=== PATIENT | male | born 1950 | race Caucasian/White ===

== ENCOUNTER 2022-06-09 13:27 | Emergency (ER) | payer MEDICARE, MEDICAID, SELFPAY ==
[2022-06-09] VITALS (50 sets, daily range): BP systolic 100–205; BP diastolic 54–97; PULSE 62–100; RESP 0–27; TEMP 36.6–38.9; O2SAT 91–100
--- NOTE | 2022-06-09 13:34 | DI.CT.S_ITS ---
PROCEDURE: CT STROKE INDICATIONS: unresponsive TECHNIQUE: Noncontrast 4.5 mm thick angled axial sections acquired from the foramen magnum to the vertex, with coronal reformats. For radiation dose reduction, the following was used: automated exposure control, adjustment of mA and/or kV according to patient size. COMPARISON: [facility], STROKE PROTOCOL, 06/22/2012, 10:22. FINDINGS: Image quality: Excellent. CSF spaces: Basal cisterns are patent. No extra-axial fluid collections. The ventricles are symmetric in size and shape. Brain: Hypodensity of the left occipital lobe is consistent with a remote infarction. No intracranial bleeds or masses. There is cerebral volume loss for age, with resultant ventricular and sulcal prominence. There are periventricular and deep white matter chronic small vessel ischemic changes. There is intracranial internal carotid artery atherosclerosis. Skull and face: Calvarium and visualized facial bones appear intact, without suspicious lesions. Sinuses: The left maxillary sinus is opacified with bony reactive thickening indicating chronic left sinusitis. An orogastric tube is partially visualized. IMPRESSION: 1. No acute intracranial abnormality. 2. Remote left occipital infarct. 3. Cerebral volume loss and small vessel ischemic changes. Findings were discussed with the emergency department at 14:12 This study fulfills neurological imaging criteria for inclusion or exclusion of acute stroke therapies based on available published neurological guidelines. Dictated by: Pako Robison M.D. on 06/09/2022 at 14:06 Approved by: Pako Robison M.D. on 06/09/2022 at 14:12
--- NOTE | 2022-06-09 13:34 | DI.RAD.S_ITS ---
PROCEDURE: XR CHEST 1V INDICATIONS: intubated. TECHNIQUE: One view of the chest was acquired. COMPARISON: [facility], , CHEST 1 VIEW, 06/21/2012, 16:29. FINDINGS: Surgical changes and devices: Endotracheal tube in the midtrachea. Lungs and pleura: Hazy opacity in the left mid lung field. No pleural effusions or pneumothorax. Mediastinum: Mediastinal contours appear unchanged. Heart size is normal. Bones and chest wall: No suspicious bony lesions. Overlying soft tissues appear unremarkable. IMPRESSION: Endotracheal tube in the mid trachea in satisfactory position. Hazy opacity in left mid lung field. This could represent atelectasis, aspiration, or pneumonia. Dictated by: Andrea Pierre M.D. on 06/09/2022 at 13:59 Approved by: Andrea Pierre M.D. on 06/09/2022 at 14:01
--- NOTE | 2022-06-09 13:35 | DI.CT.S_ITS ---
PROCEDURE: CT ANGIO HEAD AND NECK INDICATIONS: unresponsive TECHNIQUE: After the administration of intravenous contrast, 1 mm thick sections acquired from the aortic arch through the [place] of [place]. Post-contrast 4.5 mm thick sections then re-acquired from the foramen magnum to the vertex. 3-dimensional xylnohn-qiuzxxcry-dgtdnxxzxg (MIP) and/or volume rendering reformats were acquired of the central intracranial vasculature and neck separately. For radiation dose reduction, the following was used: automated exposure control, adjustment of mA and/or kV according to patient size. COMPARISON: [facility], MR, STROKE PROTOCOL, 06/22/2012, 10:22. [facility], CT, CT STROKE, 06/09/2022, 13:43. FINDINGS: Image quality: Excellent. BRAIN: The ventricular system and cortical sulci demonstrate atrophy, consistent for the patient's stated age. There are areas of hypodensity within the periventricular and subcortical white matter. There is no acute intra-or extra axial fluid collection. Old left occipital infarction. No acute hemorrhage, mass lesion or midline shift. Brainstem is unremarkable. Globes are symmetrical. Sinuses are aerated. Osseous structures are intact. HEAD CT ANGIOGRAPHY: Anterior circulation: Intracranial internal carotid arteries are normal in size and flow. The flow within the paired anterior cerebral arteries is normal and symmetric. The flow within the middle cerebral arteries is normal and symmetric. The anterior communicating artery is seen. No aneurysms are seen. Posterior circulation: There is a slight left vertebral artery dominance. Visualized portions of the vertebral arteries demonstrate normal caliber, and join to form a normal appearing basilar artery. Flow within the posterior cerebral arteries is normal and symmetric. No aneurysms are seen. 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 NECK CT ANGIOGRAPHY: The origins of the left and right common, and external carotid arteries demonstrate no areas of hemodynamically significant stenosis, vascular occlusion or aneurysmal dilation. Calcifications are present at the origin of the internal carotid arteries bilaterally. There is approximately 50% stenosis at the origin of the right internal carotid artery. Origins of the left vertebral artery demonstrates no areas of hemodynamically significant stenosis, vascular occlusion or aneurysmal dilation. There is lack of opacification at the origin of the right vertebral artery. Aortic arch demonstrates conventional anatomy. There is appearance of occlusion of the right internal jugular vein extending to the proximal SVC. In addition, filling defects are also identified within the right subclavian vein. Scattered opacities are noted in the visualized portion of the left lower lobe. . IMPRESSION: 1. No acute intracranial process. 2. Moderate atrophy and chronic microvascular ischemic changes. 3. No areas of hemodynamically significant stenosis, vascular occlusion or aneurysmal dilation within the anterior circulation. 4. Approximate 50% stenosis at the origin of the right internal carotid artery. 5. Non opacification at the origin of the right vertebral artery limiting evaluation. There is suspected to be likely at least moderate stenosis. 6. 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 7. Scattered opacities within the left lower lobe, possibly atelectasis. Any quantitative measurements of stenosis were performed using NASCET criteria. Dictated by: Radha Sharma M.D. on 06/09/2022 at 14:35 Approved by: Radha Sharma M.D. on 06/09/2022 at 14:43
--- NOTE | 2022-06-09 13:37 | ED.AMS ---
HPI - Altered Mental Status <Margaret Caal DO - Last Filed: 06/12/22 08:01> General Chief Complaint: Unresponsive Stated Complaint: Found down,resp to pain only,pt intubated. Time Seen by Provider: 06/09/22 13:30 Source: EMS Mode of arrival: EMS Limitations: altered mental status and other (intubated.) History of Present Illness HPI narrative: This is a 71-year-old male with reported history of stroke via EMS with unclear medical history. Patient was found down today. Per EMS patient was found by a niece, they had gone for a well check in the morning had left to get a ruvalcaba and then returned and found patient. Telephonic CPR recommended but not started per EMS. When they arrived patient was responsive to painful stimuli only, did not have any purposeful movement but did withdrawal. They are unclear if patient takes daily medications individuals at bedside were not able to give much medical history. Unknown exact down time. Patient received Narcan in the field with no change, succinylcholine and etomidate for intubation and received a 2nd dose of succinylcholine and Versed as patient did start to pull at his wires and seemed to be bucking the vent a little bit. Glucose was appropriate in the field. Related Data Allergies Allergy/AdvReac Type Severity Reaction Status Date / Time No Known Drug Allergies Allergy Verified 06/09/22 13:36 Review of Systems <Margaret Caal DO - Last Filed: 06/12/22 08:01> Review of Systems ROS Unobtainable: All systems reviewed & are unremarkable except as noted in HPI and below Exam <Margaret Caal DO - Last Filed: 06/12/22 08:01> Narrative Exam Narrative: GEN: Patient appears in severe distress. Patient intubated with 7.5ETT HEAD: No evidence of trauma, no raccoon/[place] sign. NECK: Trachea midline EYES: pupils pinpoint bilaterally, EOMI ENT: External inspection normal, trachea is midline, TM's are normal no hemotypanum, Nares are clear, no septal hematoma, no dental or oral injury, poor dentition, airway is normal and with normal occlusion, No bony tenderness RESP: Chest is nontender and has symmetric movement, no ecchymosis, breath sounds are normal no crackles, wheezes or rales CVS: Heart sounds are normal, no murmur noted, No JVD. ABG/GI: Nontender, soft, normal bowel sounds, no distention, no organomegaly, pelvic rock is negative GENIT, RECTAL: Normal external inspection, normal rectal tone normal NEURO: GCS of 6, patient localizes to painful stimuli, patient no movement with Babinski, pupils are pinpoint bilaterally nonreactive, patient does cough on ET tube was suctioned. SKIN: Intact, warm and dry, no crepitus and without decubitus BACK: No CVA tenderness, no vertebral tenderness, no step-off's, no crepitus EXT: Atraumatic, hips are nontender, no pedal edema, normal color and temperature. Initial Vital Signs Initial Vital Signs: Vital Signs Temperature 98.0 F 06/09/22 13:30 Pulse Rate 98 H 06/09/22 13:30 Respiratory Rate 27 H 06/09/22 13:30 Blood Pressure 151/89 H 06/09/22 13:30 Pulse Oximetry 98 06/09/22 13:30 Oxygen Delivery Method 06/09/22 13:30 <Earl Hardin DO - Last Filed: 06/09/22 23:57> Initial Vital Signs Initial Vital Signs: Vital Signs Temperature 98.0 F 06/09/22 13:30 Pulse Rate 98 H 06/09/22 13:30 Respiratory Rate 27 H 06/09/22 13:30 Blood Pressure 151/89 H 06/09/22 13:30 Pulse Oximetry 98 06/09/22 13:30 Oxygen Delivery Method 06/09/22 13:30 Procedures <DO Mohamud Clark Last Filed: 06/12/22 08:01> Lumbar Puncture Time of procedure: 17:40 Time Out Performed: Yes Patient Position: left lateral decubitus Skin Prep: Povidone-Iodine 1% Local Anesthetic: lidocaine 2% Amount of anesthesia used (mL): 4 Spinal Needle Gauge: 22G Interspace Used: L4-L5 Opening Pressure (cmH20): 18 Fluid Initially Obtained: clear Complications: none Additional Comments: Patient intubated during procedure implied consent for procedure for treatment of potential meningitis. Scores <DO Mohamud Clark Last Filed: 06/12/22 08:01> GCS Dayana coma scale eye opening: None Dayana coma scale verbal response: None (intubated) Dayana coma scale motor response: Normal flexion Dayana coma scale total score: 6 <Earl Hardin DO - Last Filed: 06/09/22 23:57> GCS Dayana coma scale total score: 6 Course <Margaret Meme Caal, DO - Last Filed: 06/12/22 08:01> Orders Ordered: Discontinued Medications Acetaminophen (Acetaminophen 650 Mg Supp) 650 mg WI NOW ONE Stop: 06/09/22 16:06 Last Admin: 06/09/22 16:48 Dose: 650 mg Documented By: NR Dexamethasone (Dexamethasone 10 Mg/Ml Vial) 10 mg IV NOW ONE Stop: 06/09/22 16:09 Last Admin: 06/09/22 16:52 Dose: 10 mg Documented By: NR Fentanyl (Fentanyl 100 Mcg/2 Ml Inj) 50 mcg IV NOW ONE Stop: 06/09/22 14:13 Last Admin: 06/09/22 14:17 Dose: 50 mcg Documented By: NR Sodium Chloride (Normal Saline 0.9%) 1,000 mls @ 150 mls/hr IV CONT AZUCENA Last Infusion: 06/10/22 00:51 Dose: 150 mls/hr Documented By: Admin: 06/09/22 13:46 Dose: 150 mls/hr Documented By: NR Fentanyl 1,000 mcg/ Dextrose 250 mls @ 11.375 mls/hr IV TITRATE AZUCENA Last Infusion: 06/10/22 00:19 Dose: 1 mcg/kg/hr, 16.25 mls/hr Documented By: Admin: 06/09/22 14:39 Dose: 0.7 mcg/kg/hr, 11.375 mls/hr Documented By: NR Ampicillin Sodium/Sulbactam (Sodium 3 gm/ Sodium Chloride) 100 mls @ 100 mls/hr IV NOW ONE Stop: 06/09/22 16:09 Last Infusion: 06/09/22 20:00 Dose: 0 mls/hr Documented By: Admin: 06/09/22 17:35 Dose: 100 mls/hr Documented By: NR Vancomycin HCl/Dextrose (Vancomycin) 1,500 mg in 300 mls @ 200 mls/hr IV NOW ONE Stop: 06/09/22 17:37 Last Infusion: 06/09/22 21:41 Dose: 0 mls/hr Documented By: Admin: 06/09/22 20:05 Dose: 200 mls/hr Documented By: NR Ceftriaxone Sodium 2,000 mg/ (Sodium Chloride) 100 mls @ 200 mls/hr IV NOW ONE Stop: 06/09/22 16:09 Last Infusion: 06/09/22 18:22 Dose: 0 mls/hr Documented By: Admin: 06/09/22 16:52 Dose: 200 mls/hr Documented By: NR Sodium Chloride (Normal Saline 0.9%) 1,950 mls @ 650 mls/hr 30 ml/kg infuse over 3 hr (1950 ml) IV NOW ONE Stop: 06/09/22 20:17 Last Infusion: 06/09/22 23:56 Dose: 0 mls/hr Documented By: Admin: 06/09/22 21:10 Dose: 650 mls/hr Documented By: FRED Acyclovir 650 mg/ Dextrose 250 mls @ 250 mls/hr IV NOW ONE Stop: 06/09/22 17:34 Last Infusion: 06/09/22 20:02 Dose: 0 mls/hr Documented By: Admin: 06/09/22 18:56 Dose: 250 mls/hr Documented By: NR Heparin Sodium/Dextrose (Heparin Drip) 25,000 unit in 500 mls @ 24 mls/hr IV CONT AZUCENA; Protocol Last Admin: 06/09/22 23:04 Dose: 1,200 units/hr, 24 mls/hr Documented By: NR Midazolam HCl (Midazolam 5 Mg/Ml Vial) 4 mg IV NOW ONE Stop: 06/09/22 13:39 Last Admin: 06/09/22 13:46 Dose: 4 mg Documented By: NR Consultations Consultation #1: Dr. Salvador [facility] telestroke. Will review images and callback. After several tries Dr. Salvador was able to view images does note that patient has some old stroke but nothing acute that she can appreciate, she agrees with plan to treat and perform lumbar puncture also degrees with plan to hold heparin and start several hours after lumbar puncture but without bolus. Time: 15:56 Consultation #2: Dr. Pacheco, hospitalist. Discussed current findings so far meningitis is on the differential but patient does also have clot which may be causing fever, this could also potentially caused stroke or brainstem stroke. Have initiated antibiotics for possible meningitis discussed timeliness of LP/heparin and risks. Recommends discussing with tell appeals referee Consultation #3: Dr. Weinstein, tele appeals referee does not feel patient is appropriate for cooling protocol at this time as there is no known CPR, does agree with plan for LP, treating with antibiotics but discussed fact that clot is present he would recommend holding heparin for several hours after lumbar puncture and then starting with drip without bolus. If patient is not found to have meningitis would recommend MRI brain and EEG which would require us to ship. He also recommends echo at this time. Time: 17:00 Additional Consultation(s): Dr. Sharma radfrank-Ct head neck angio shows no fx, subluxation negative Cspine. Vital Signs Vital signs: Vital Signs - 8 hr 06/09/22 16:48 06/09/22 18:22 06/09/22 16:00 Temperature 101.8 F H 101.7 F H Pulse Rate Respiratory Rate Blood Pressure 191/81 H Pulse Oximetry 06/09/22 16:00 06/09/22 16:15 06/09/22 16:15 Temperature 101.3 F H 101.3 F H Pulse Rate 87 90 Respiratory Rate 14 14 Blood Pressure 156/77 H Pulse Oximetry 95 95 06/09/22 16:30 06/09/22 16:30 06/09/22 16:45 Temperature 101.7 F H Pulse Rate 91 H Respiratory Rate 15 Blood Pressure 172/84 H 153/78 H Pulse Oximetry 96 06/09/22 16:45 06/09/22 17:00 06/09/22 17:00 Temperature 101.8 F H 101.8 F H Pulse Rate 97 H 96 H Respiratory Rate 14 23 Blood Pressure 153/79 H Pulse Oximetry 96 97 06/09/22 17:15 06/09/22 17:15 06/09/22 17:30 Temperature 102.0 F H Pulse Rate 100 H Respiratory Rate 14 Blood Pressure 139/73 136/76 Pulse Oximetry 97 06/09/22 17:30 06/09/22 17:45 06/09/22 17:45 Temperature 102.0 F H 101.8 F H Pulse Rate 99 H 100 H Respiratory Rate 15 24 Blood Pressure 137/65 Pulse Oximetry 97 95 06/09/22 18:00 06/09/22 18:00 06/09/22 18:15 Temperature 101.8 F H Pulse Rate 92 H Respiratory Rate 17 Blood Pressure 112/54 L 117/80 Pulse Oximetry 91 06/09/22 18:15 06/09/22 18:30 06/09/22 18:30 Temperature 101.7 F H 101.7 F H Pulse Rate 98 H 98 H Respiratory Rate 12 14 Blood Pressure 122/70 Pulse Oximetry 97 97 06/09/22 18:45 06/09/22 18:45 06/09/22 19:00 Temperature 101.5 F H Pulse Rate 94 H Respiratory Rate 13 Blood Pressure 123/71 112/65 Pulse Oximetry 97 06/09/22 19:00 06/09/22 19:15 06/09/22 19:15 Temperature 101.3 F H 100.9 F H Pulse Rate 90 90 Respiratory Rate 13 14 Blood Pressure 112/64 Pulse Oximetry 97 97 06/09/22 19:30 06/09/22 19:30 06/09/22 19:45 Temperature 100.8 F H Pulse Rate 91 H Respiratory Rate 14 Blood Pressure 100/63 102/64 Pulse Oximetry 96 06/09/22 19:45 06/09/22 20:00 06/09/22 20:00 Temperature 100.6 F H 100.4 F H Pulse Rate 91 H 91 H Respiratory Rate 14 15 Blood Pressure 109/64 Pulse Oximetry 96 96 06/09/22 20:15 06/09/22 20:15 06/09/22 20:30 Temperature 100.2 F H Pulse Rate 91 H Respiratory Rate 14 Blood Pressure 108/63 108/62 Pulse Oximetry 96 06/09/22 20:30 06/09/22 20:45 06/09/22 20:45 Temperature 100.0 F H 99.7 F H Pulse Rate 86 81 Respiratory Rate 14 13 Blood Pressure 107/61 Pulse Oximetry 97 97 06/09/22 21:00 06/09/22 21:00 06/09/22 21:15 Temperature 99.5 F Pulse Rate 78 Respiratory Rate 13 Blood Pressure 114/63 114/63 Pulse Oximetry 97 06/09/22 21:15 06/09/22 21:30 06/09/22 21:30 Temperature 99.3 F 99.3 F Pulse Rate 74 71 Respiratory Rate 13 13 Blood Pressure 111/63 Pulse Oximetry 97 97 06/09/22 21:45 06/09/22 21:45 06/09/22 22:00 Temperature 99.1 F Pulse Rate 70 Respiratory Rate 13 Blood Pressure 107/61 125/60 Pulse Oximetry 97 06/09/22 22:00 06/09/22 22:15 06/09/22 22:15 Temperature 99.0 F 98.8 F Pulse Rate 66 66 Respiratory Rate 13 13 Blood Pressure 113/56 L Pulse Oximetry 98 96 06/09/22 22:30 06/09/22 22:30 06/09/22 22:45 Temperature 98.6 F Pulse Rate 67 Respiratory Rate 13 Blood Pressure 119/57 L 138/59 L Pulse Oximetry 97 06/09/22 22:45 06/09/22 23:00 06/09/22 23:00 Temperature 98.4 F 98.2 F Pulse Rate 67 66 Respiratory Rate 13 12 Blood Pressure 130/62 Pulse Oximetry 97 97 06/09/22 23:15 06/09/22 23:15 Temperature 98.1 F Pulse Rate 67 Respiratory Rate 12 Blood Pressure 128/59 L Pulse Oximetry 97 <Earl Hardin, DO - Last Filed: 06/09/22 23:57> Orders Ordered: Discontinued Medications Acetaminophen (Acetaminophen 650 Mg Supp) 650 mg WI NOW ONE Stop: 06/09/22 16:06 Last Admin: 06/09/22 16:48 Dose: 650 mg Documented By: NR Dexamethasone (Dexamethasone 10 Mg/Ml Vial) 10 mg IV NOW ONE Stop: 06/09/22 16:09 Last Admin: 06/09/22 16:52 Dose: 10 mg Documented By: NR Fentanyl (Fentanyl 100 Mcg/2 Ml Inj) 50 mcg IV NOW ONE Stop: 06/09/22 14:13 Last Admin: 06/09/22 14:17 Dose: 50 mcg Documented By: NR Sodium Chloride (Normal Saline 0.9%) 1,000 mls @ 150 mls/hr IV CONT AZUCENA Last Infusion: 06/10/22 00:51 Dose: 150 mls/hr Documented By: Admin: 06/09/22 13:46 Dose: 150 mls/hr Documented By: NR Fentanyl 1,000 mcg/ Dextrose 250 mls @ 11.375 mls/hr IV TITRATE AZUCENA Last Infusion: 06/10/22 00:19 Dose: 1 mcg/kg/hr, 16.25 mls/hr Documented By: Admin: 06/09/22 14:39 Dose: 0.7 mcg/kg/hr, 11.375 mls/hr Documented By: NR Ampicillin Sodium/Sulbactam (Sodium 3 gm/ Sodium Chloride) 100 mls @ 100 mls/hr IV NOW ONE Stop: 06/09/22 16:09 Last Infusion: 06/09/22 20:00 Dose: 0 mls/hr Documented By: Admin: 06/09/22 17:35 Dose: 100 mls/hr Documented By: NR Vancomycin HCl/Dextrose (Vancomycin) 1,500 mg in 300 mls @ 200 mls/hr IV NOW ONE Stop: 06/09/22 17:37 Last Infusion: 06/09/22 21:41 Dose: 0 mls/hr Documented By: Admin: 06/09/22 20:05 Dose: 200 mls/hr Documented By: NR Ceftriaxone Sodium 2,000 mg/ (Sodium Chloride) 100 mls @ 200 mls/hr IV NOW ONE Stop: 06/09/22 16:09 Last Infusion: 06/09/22 18:22 Dose: 0 mls/hr Documented By: Admin: 06/09/22 16:52 Dose: 200 mls/hr Documented By: NR Sodium Chloride (Normal Saline 0.9%) 1,950 mls @ 650 mls/hr 30 ml/kg infuse over 3 hr (1950 ml) IV NOW ONE Stop: 06/09/22 20:17 Last Infusion: 06/09/22 23:56 Dose: 0 mls/hr Documented By: Admin: 06/09/22 21:10 Dose: 650 mls/hr Documented By: FRED Acyclovir 650 mg/ Dextrose 250 mls @ 250 mls/hr IV NOW ONE Stop: 06/09/22 17:34 Last Infusion: 06/09/22 20:02 Dose: 0 mls/hr Documented By: Admin: 06/09/22 18:56 Dose: 250 mls/hr Documented By: NR Heparin Sodium/Dextrose (Heparin Drip) 25,000 unit in 500 mls @ 24 mls/hr IV CONT AZUCENA; Protocol Last Admin: 06/09/22 23:04 Dose: 1,200 units/hr, 24 mls/hr Documented By: NR Midazolam HCl (Midazolam 5 Mg/Ml Vial) 4 mg IV NOW ONE Stop: 06/09/22 13:39 Last Admin: 06/09/22 13:46 Dose: 4 mg Documented By: NR Vital Signs Vital signs: Vital Signs - 8 hr 06/09/22 16:48 06/09/22 18:22 06/09/22 16:00 Temperature 101.8 F H 101.7 F H Pulse Rate Respiratory Rate Blood Pressure 191/81 H Pulse Oximetry 06/09/22 16:00 06/09/22 16:15 06/09/22 16:15 Temperature 101.3 F H 101.3 F H Pulse Rate 87 90 Respiratory Rate 14 14 Blood Pressure 156/77 H Pulse Oximetry 95 95 06/09/22 16:30 06/09/22 16:30 06/09/22 16:45 Temperature 101.7 F H Pulse Rate 91 H Respiratory Rate 15 Blood Pressure 172/84 H 153/78 H Pulse Oximetry 96 06/09/22 16:45 06/09/22 17:00 06/09/22 17:00 Temperature 101.8 F H 101.8 F H Pulse Rate 97 H 96 H Respiratory Rate 14 23 Blood Pressure 153/79 H Pulse Oximetry 96 97 06/09/22 17:15 06/09/22 17:15 06/09/22 17:30 Temperature 102.0 F H Pulse Rate 100 H Respiratory Rate 14 Blood Pressure 139/73 136/76 Pulse Oximetry 97 06/09/22 17:30 06/09/22 17:45 06/09/22 17:45 Temperature 102.0 F H 101.8 F H Pulse Rate 99 H 100 H Respiratory Rate 15 24 Blood Pressure 137/65 Pulse Oximetry 97 95 06/09/22 18:00 06/09/22 18:00 06/09/22 18:15 Temperature 101.8 F H Pulse Rate 92 H Respiratory Rate 17 Blood Pressure 112/54 L 117/80 Pulse Oximetry 91 06/09/22 18:15 06/09/22 18:30 06/09/22 18:30 Temperature 101.7 F H 101.7 F H Pulse Rate 98 H 98 H Respiratory Rate 12 14 Blood Pressure 122/70 Pulse Oximetry 97 97 06/09/22 18:45 06/09/22 18:45 06/09/22 19:00 Temperature 101.5 F H Pulse Rate 94 H Respiratory Rate 13 Blood Pressure 123/71 112/65 Pulse Oximetry 97 06/09/22 19:00 06/09/22 19:15 06/09/22 19:15 Temperature 101.3 F H 100.9 F H Pulse Rate 90 90 Respiratory Rate 13 14 Blood Pressure 112/64 Pulse Oximetry 97 97 06/09/22 19:30 06/09/22 19:30 06/09/22 19:45 Temperature 100.8 F H Pulse Rate 91 H Respiratory Rate 14 Blood Pressure 100/63 102/64 Pulse Oximetry 96 06/09/22 19:45 06/09/22 20:00 06/09/22 20:00 Temperature 100.6 F H 100.4 F H Pulse Rate 91 H 91 H Respiratory Rate 14 15 Blood Pressure 109/64 Pulse Oximetry 96 96 06/09/22 20:15 06/09/22 20:15 06/09/22 20:30 Temperature 100.2 F H Pulse Rate 91 H Respiratory Rate 14 Blood Pressure 108/63 108/62 Pulse Oximetry 96 06/09/22 20:30 06/09/22 20:45 06/09/22 20:45 Temperature 100.0 F H 99.7 F H Pulse Rate 86 81 Respiratory Rate 14 13 Blood Pressure 107/61 Pulse Oximetry 97 97 06/09/22 21:00 06/09/22 21:00 06/09/22 21:15 Temperature 99.5 F Pulse Rate 78 Respiratory Rate 13 Blood Pressure 114/63 114/63 Pulse Oximetry 97 06/09/22 21:15 06/09/22 21:30 06/09/22 21:30 Temperature 99.3 F 99.3 F Pulse Rate 74 71 Respiratory Rate 13 13 Blood Pressure 111/63 Pulse Oximetry 97 97 06/09/22 21:45 06/09/22 21:45 06/09/22 22:00 Temperature 99.1 F Pulse Rate 70 Respiratory Rate 13 Blood Pressure 107/61 125/60 Pulse Oximetry 97 06/09/22 22:00 06/09/22 22:15 06/09/22 22:15 Temperature 99.0 F 98.8 F Pulse Rate 66 66 Respiratory Rate 13 13 Blood Pressure 113/56 L Pulse Oximetry 98 96 06/09/22 22:30 06/09/22 22:30 06/09/22 22:45 Temperature 98.6 F Pulse Rate 67 Respiratory Rate 13 Blood Pressure 119/57 L 138/59 L Pulse Oximetry 97 06/09/22 22:45 06/09/22 23:00 06/09/22 23:00 Temperature 98.4 F 98.2 F Pulse Rate 67 66 Respiratory Rate 13 12 Blood Pressure 130/62 Pulse Oximetry 97 97 06/09/22 23:15 06/09/22 23:15 Temperature 98.1 F Pulse Rate 67 Respiratory Rate 12 Blood Pressure 128/59 L Pulse Oximetry 97 MDM - Altered Mental Status <Margaret Caal, - Last Filed: 06/12/22 08:01> Lab Data Result diagrams: 06/09/22 14:56 06/09/22 14:56 Labs: Lab Results 06/09/22 06/09/22 06/09/22 Range/Units 14:36 14:36 14:37 WBC (4.5-11.0) X10^3/uL RBC (4.5-5.9) X10^6/uL Hgb (13.5-17.5) g/dL Hct (41-53) % MCV (80-100) fL MCH (26-34) PG MCHC (30-36) % RDW (11.6-14.8) % Plt Count (150-400) X10^3/uL Neut % (Auto) (50-75) % Lymph % (Auto) (25-40) % Johnston % (Auto) (3-14) % Eos % (Auto) (2-4) % Baso % (Auto) (0-2) % Neut # (Auto) (0069-6138) /uL Lymph # (Auto) (4676-4961) /uL Johnston # (Auto) (0-900) /uL Eos # (Auto) (0-450) /uL Baso # (Auto) (0-100) /uL PT (10.1-12.7) SECONDS INR (0.9-1.3) APTT (26-36) SECONDS ABG pH 7.45 (7.35-7.45) ABG pCO2 32.7 L (35-45) mmHg ABG pO2 220 H (80-100) mmHg ABG HCO3 23 (22-26) mmol/L ABG Total CO2 24 (21-31) mmol/L ABG O2 Saturation 100 (95-100) % ABG Base Excess -1.0 (-2-2) mmol/L FiO2 100 Sodium (137-145) mmol/L Potassium (3.4-5.1) mmol/L Chloride (98-107) mmol/L Carbon Dioxide (22-32) mmol/L BUN (9-20) mg/dL Creatinine (0.66-1.25) mg/dL Estimated GFR (>60) mL/min BUN/Creatinine Ratio (6-22) Glucose (80-110) mg/dL Lactate (0.7-2.1) mmol/L Calcium (8.4-10.2) mg/dL Total Bilirubin (0.2-1.3) mg/dL AST (17-59) IU/L ALT (<50) IU/L Alkaline Phosphatase (38-126) U/L Ammonia (9-30) umol/L Total Creatine Kinase (55-170) U/L CK-MB (CK-2) (<2.37) ng/mL CK-MB (CK-2) Rel Index (1.5-5.0) % Troponin I (0.01-0.034) ng/mL NT-Pro-B Natriuret Pep (<125) pg/mL Total Protein (6.3-8.2) g/dL Albumin (3.5-5.0) g/dL Globulin (1.7-4.1) g/dL Albumin/Globulin Ratio (1.0-2.8) Procalcitonin (<0.5) ng/mL Urine Color Yellow Urine Appearance Clear Urine pH 5.0 (4.5-8.0) Ur Specific Babbitt 1.025 (1.000-1.035) Urine Protein 1+ H (Negative) Urine Glucose (UA) Negative (Negative) g/dL Urine Ketones 1+ H (NEGATIVE) Urine Occult Blood 1+ H (Negative) Urine Nitrate Negative (Negative) Urine Bilirubin 1+ H (NEGATIVE) Ur Bilirubin Confirm Negative (Negative) Urine Urobilinogen 1.0 (0.2) E.U./dL Ur Leukocyte Esterase Negative (NEGATIVE) Urine RBC 1-5/hpf (0-5/HPF) Urine WBC 1-5/hpf (0-5/HPF) Ur Squamous Epith Cells 0-1 /hpf (0-5/HPF) Ur Transition Epith Cell 0-1/hpf (0-5/HPF) Urine Bacteria Occasional (0-1) (None) Hyaline Casts 10-30/lpf (None) Granular Casts 10-30/lpf (None) Urine Mucus 2+ H (Negative) Ur Culture Indicated? Cult not indicated CSF Tube Number CSF Volume CSF Appearance (Clear) CSF Color (Colorless) CSF WBC (0-5) MONO/uL CSF RBC RBC /uL CSF Mononuclear WBCs CSF Polynuclear WBCs CSF Glucose (40-70) mg/dL CSF Total Protein (12-60) mg/dL CSF C.neoform/gat PCR (Not Detect) CSF CMV DNA (PCR) (Not Detect) CSF Enterovirus (PCR) (Not Detect) CSF E. coli (PCR) (Not Detect) CSF H. influenzae (PCR) (Not Detect) CSF HSV I (PCR) (Not Detect) CSF HSV II (PCR) (Not Detect) CSF HHV 6 (PCR) (Not Detect) CSF L.monocytogenes PCR (Not Detect) CSF N. meningitidis PCR (Not Detect) CSF Parechovirus (PCR) (Not Detect) CSF S. agalactiae (PCR) (Not Detect) CSF S. pneumoniae (PCR) (Not Detect) CSF VZV (PCR) (Not Detecte) U Opiates 300ng/mL cut Negative (Negative) Ur Oxycodone Screen Negative (Negative) Urine Methadone Screen Negative (Negative) Ur Barbiturates Screen Negative (Negative) U Tricyclic Antidepress Negative (Negative) Ur Phencyclidine Scrn Negative (Negative) Ur Amphetamines Screen Negative (Negative) U Methamphetamines Scrn Negative (Negative) Ur MDMA Scrn (Ecstasy) Negative (Negative) U Benzodiazepines Scrn Negative (Negative) Urine Cocaine Screen Negative (Negative) U Marijuana (THC) Screen Negative (Negative) Ethyl Alcohol ( - 10) mg/dL A. baumannii (PCR) (Not Detect) Xin albicans (PCR) (Not Detect) C. glabrata (PCR) (Not Detect) C. krusei (PCR) (Not Detect) C. parapsilosis (PCR) (Not Detect) C. tropicalis (PCR) (Not Detect) SARS-CoV-2 (PCR) (Negative) Enterobacteriac sp PCR (Not Detect) E. cloacae complex PCR (Not Detect) Enterococcus sp PCR (Not Detect) E. coli (PCR) (Not Detect) H. influenzae (PCR) (Not Detect) Klebsiella oxytoca PCR (Not Detect) Klebsiella pneumoniae (Not Detect) List. monocytogenes PCR (Not Detect) N. meningitidis (PCR) (Not Detect) Proteus species (PCR) (Not Detect) Serratia marcescens PCR (Not Detect) Staphylococcus sp PCR (Not Detect) Staph aureus (PCR) (Not Detect) mecA-Methicil Res Gene (Not Detect) Streptococcus sp PCR (Not Detect) Group A Strep (PCR) (Not Detect) Strep agalactiae (PCR) (Not Detect) Strep pneumoniae (PCR) (Not Detect) P. aeruginosa (PCR) (Not Detect) Jules/B-Vanco Res Genes KPC-Carbap Res Gene PCR (Not Detect) 06/09/22 06/09/22 06/09/22 Range/Units 14:49 14:56 14:56 WBC 6.5 (4.5-11.0) X10^3/uL RBC 5.64 (4.5-5.9) X10^6/uL Hgb 19.0 H (13.5-17.5) g/dL Hct 55.5 H (41-53) % MCV 98.4 (80-100) fL MCH 33.7 (26-34) PG MCHC 34.2 (30-36) % RDW 13.4 (11.6-14.8) % Plt Count 229 (150-400) X10^3/uL Neut % (Auto) 79.8 H (50-75) % Lymph % (Auto) 13.1 L (25-40) % Johnston % (Auto) 6.7 (3-14) % Eos % (Auto) 0.1 L (2-4) % Baso % (Auto) 0.3 (0-2) % Neut # (Auto) 5200 (0751-4137) /uL Lymph # (Auto) 900 L (0749-4960) /uL Johnston # (Auto) 400 (0-900) /uL Eos # (Auto) 0 (0-450) /uL Baso # (Auto) 0 (0-100) /uL PT 13.4 H (10.1-12.7) SECONDS INR 1.2 (0.9-1.3) APTT 31 (26-36) SECONDS ABG pH (7.35-7.45) ABG pCO2 (35-45) mmHg ABG pO2 (80-100) mmHg ABG HCO3 (22-26) mmol/L ABG Total CO2 (21-31) mmol/L ABG O2 Saturation (95-100) % ABG Base Excess (-2-2) mmol/L FiO2 Sodium (137-145) mmol/L Potassium (3.4-5.1) mmol/L Chloride (98-107) mmol/L Carbon Dioxide (22-32) mmol/L BUN (9-20) mg/dL Creatinine (0.66-1.25) mg/dL Estimated GFR (>60) mL/min BUN/Creatinine Ratio (6-22) Glucose (80-110) mg/dL Lactate (0.7-2.1) mmol/L Calcium (8.4-10.2) mg/dL Total Bilirubin (0.2-1.3) mg/dL AST (17-59) IU/L ALT (<50) IU/L Alkaline Phosphatase (38-126) U/L Ammonia (9-30) umol/L Total Creatine Kinase (55-170) U/L CK-MB (CK-2) (<2.37) ng/mL CK-MB (CK-2) Rel Index (1.5-5.0) % Troponin I (0.01-0.034) ng/mL NT-Pro-B Natriuret Pep (<125) pg/mL Total Protein (6.3-8.2) g/dL Albumin (3.5-5.0) g/dL Globulin (1.7-4.1) g/dL Albumin/Globulin Ratio (1.0-2.8) Procalcitonin (<0.5) ng/mL Urine Color Urine Appearance Urine pH (4.5-8.0) Ur Specific [place] (1.000-1.035) Urine Protein (Negative) Urine Glucose (UA) (Negative) g/dL Urine Ketones (NEGATIVE) Urine Occult Blood (Negative) Urine Nitrate (Negative) Urine Bilirubin (NEGATIVE) Ur Bilirubin Confirm (Negative) Urine Urobilinogen (0.2) E.U./dL Ur Leukocyte Esterase (NEGATIVE) Urine RBC (0-5/HPF) Urine WBC (0-5/HPF) Ur Squamous Epith Cells (0-5/HPF) Ur Transition Epith Cell (0-5/HPF) Urine Bacteria (None) Hyaline Casts (None) Granular Casts (None) Urine Mucus (Negative) Ur Culture Indicated? CSF Tube Number CSF Volume CSF Appearance (Clear) CSF Color (Colorless) CSF WBC (0-5) MONO/uL CSF RBC RBC /uL CSF Mononuclear WBCs CSF Polynuclear WBCs CSF Glucose (40-70) mg/dL CSF Total Protein (12-60) mg/dL CSF C.neoform/gat PCR (Not Detect) CSF CMV DNA (PCR) (Not Detect) CSF Enterovirus (PCR) (Not Detect) CSF E. coli (PCR) (Not Detect) CSF H. influenzae (PCR) (Not Detect) CSF HSV I (PCR) (Not Detect) CSF HSV II (PCR) (Not Detect) CSF HHV 6 (PCR) (Not Detect) CSF L.monocytogenes PCR (Not Detect) CSF N. meningitidis PCR (Not Detect) CSF Parechovirus (PCR) (Not Detect) CSF S. agalactiae (PCR) (Not Detect) CSF S. pneumoniae (PCR) (Not Detect) CSF VZV (PCR) (Not Detecte) U Opiates 300ng/mL cut (Negative) Ur Oxycodone Screen (Negative) Urine Methadone Screen (Negative) Ur Barbiturates Screen (Negative) U Tricyclic Antidepress (Negative) Ur Phencyclidine Scrn (Negative) Ur Amphetamines Screen (Negative) U Methamphetamines Scrn (Negative) Ur MDMA Scrn (Ecstasy) (Negative) U Benzodiazepines Scrn (Negative) Urine Cocaine Screen (Negative) U Marijuana (THC) Screen (Negative) Ethyl Alcohol ( - 10) mg/dL A. baumannii (PCR) (Not Detect) Xin albicans (PCR) (Not Detect) C. glabrata (PCR) (Not Detect) C. krusei (PCR) (Not Detect) C. parapsilosis (PCR) (Not Detect) C. tropicalis (PCR) (Not Detect) SARS-CoV-2 (PCR) Negative (Negative) Enterobacteriac sp PCR (Not Detect) E. cloacae complex PCR (Not Detect) Enterococcus sp PCR (Not Detect) E. coli (PCR) (Not Detect) H. influenzae (PCR) (Not Detect) Klebsiella oxytoca PCR (Not Detect) Klebsiella pneumoniae (Not Detect) List. monocytogenes PCR (Not Detect) N. meningitidis (PCR) (Not Detect) Proteus species (PCR) (Not Detect) Serratia marcescens PCR (Not Detect) Staphylococcus sp PCR (Not Detect) Staph aureus (PCR) (Not Detect) mecA-Methicil Res Gene (Not Detect) Streptococcus sp PCR (Not Detect) Group A Strep (PCR) (Not Detect) Strep agalactiae (PCR) (Not Detect) Strep pneumoniae (PCR) (Not Detect) P. aeruginosa (PCR) (Not Detect) Jules/B-Vanco Res Genes KPC-Carbap Res Gene PCR (Not Detect) 06/09/22 06/09/22 06/09/22 Range/Units 14:56 14:56 14:56 WBC (4.5-11.0) X10^3/uL RBC (4.5-5.9) X10^6/uL Hgb (13.5-17.5) g/dL Hct (41-53) % MCV (80-100) fL MCH (26-34) PG MCHC (30-36) % RDW (11.6-14.8) % Plt Count (150-400) X10^3/uL Neut % (Auto) (50-75) % Lymph % (Auto) (25-40) % Johnston % (Auto) (3-14) % Eos % (Auto) (2-4) % Baso % (Auto) (0-2) % Neut # (Auto) (5183-7941) /uL Lymph # (Auto) (9891-9160) /uL Johnston # (Auto) (0-900) /uL Eos # (Auto) (0-450) /uL Baso # (Auto) (0-100) /uL PT (10.1-12.7) SECONDS INR (0.9-1.3) APTT (26-36) SECONDS ABG pH (7.35-7.45) ABG pCO2 (35-45) mmHg ABG pO2 (80-100) mmHg ABG HCO3 (22-26) mmol/L ABG Total CO2 (21-31) mmol/L ABG O2 Saturation (95-100) % ABG Base Excess (-2-2) mmol/L FiO2 Sodium 135 L (137-145) mmol/L Potassium 4.5 (3.4-5.1) mmol/L Chloride 98 (98-107) mmol/L Carbon Dioxide 24 (22-32) mmol/L BUN 28 H (9-20) mg/dL Creatinine 1.42 H (0.66-1.25) mg/dL Estimated GFR 53 L (>60) mL/min BUN/Creatinine Ratio 19.7 (6-22) Glucose 123 H (80-110) mg/dL Lactate (0.7-2.1) mmol/L Calcium 8.8 (8.4-10.2) mg/dL Total Bilirubin 2.4 H (0.2-1.3) mg/dL AST 38 (17-59) IU/L ALT 20 (<50) IU/L Alkaline Phosphatase 59 (38-126) U/L Ammonia < 9 L (9-30) umol/L Total Creatine Kinase 512 H (55-170) U/L CK-MB (CK-2) 1.94 (<2.37) ng/mL CK-MB (CK-2) Rel Index 0.4 L (1.5-5.0) % Troponin I < 0.012 (0.01-0.034) ng/mL NT-Pro-B Natriuret Pep 516 H (<125) pg/mL Total Protein 9.2 H (6.3-8.2) g/dL Albumin 4.6 (3.5-5.0) g/dL Globulin 4.6 H (1.7-4.1) g/dL Albumin/Globulin Ratio 1.0 (1.0-2.8) Procalcitonin (<0.5) ng/mL Urine Color Urine Appearance Urine pH (4.5-8.0) Ur Specific Babb[place] (1.000-1.035) Urine Protein (Negative) Urine Glucose (UA) (Negative) g/dL Urine Ketones (NEGATIVE) Urine Occult Blood (Negative) Urine Nitrate (Negative) Urine Bilirubin (NEGATIVE) Ur Bilirubin Confirm (Negative) Urine Urobilinogen (0.2) E.U./dL Ur Leukocyte Esterase (NEGATIVE) Urine RBC (0-5/HPF) Urine WBC (0-5/HPF) Ur Squamous Epith Cells (0-5/HPF) Ur Transition Epith Cell (0-5/HPF) Urine Bacteria (None) Hyaline Casts (None) Granular Casts (None) Urine Mucus (Negative) Ur Culture Indicated? CSF Tube Number CSF Volume CSF Appearance (Clear) CSF Color (Colorless) CSF WBC (0-5) MONO/uL CSF RBC RBC /uL CSF Mononuclear WBCs CSF Polynuclear WBCs CSF Glucose (40-70) mg/dL CSF Total Protein (12-60) mg/dL CSF C.neoform/gat PCR (Not Detect) CSF CMV DNA (PCR) (Not Detect) CSF Enterovirus (PCR) (Not Detect) CSF E. coli (PCR) (Not Detect) CSF H. influenzae (PCR) (Not Detect) CSF HSV I (PCR) (Not Detect) CSF HSV II (PCR) (Not Detect) CSF HHV 6 (PCR) (Not Detect) CSF L.monocytogenes PCR (Not Detect) CSF N. meningitidis PCR (Not Detect) CSF Parechovirus (PCR) (Not Detect) CSF S. agalactiae (PCR) (Not Detect) CSF S. pneumoniae (PCR) (Not Detect) CSF VZV (PCR) (Not Detecte) U Opiates 300ng/mL cut (Negative) Ur Oxycodone Screen (Negative) Urine Methadone Screen (Negative) Ur Barbiturates Screen (Negative) U Tricyclic Antidepress (Negative) Ur Phencyclidine Scrn (Negative) Ur Amphetamines Screen (Negative) U Methamphetamines Scrn (Negative) Ur MDMA Scrn (Ecstasy) (Negative) U Benzodiazepines Scrn (Negative) Urine Cocaine Screen (Negative) U Marijuana (THC) Screen (Negative) Ethyl Alcohol < 10 ( - 10) mg/dL A. baumannii (PCR) (Not Detect) Xin albicans (PCR) (Not Detect) C. glabrata (PCR) (Not Detect) C. krusei (PCR) (Not Detect) C. parapsilosis (PCR) (Not Detect) C. tropicalis (PCR) (Not Detect) SARS-CoV-2 (PCR) (Negative) Enterobacteriac sp PCR (Not Detect) E. cloacae complex PCR (Not Detect) Enterococcus sp PCR (Not Detect) E. coli (PCR) (Not Detect) H. influenzae (PCR) (Not Detect) Klebsiella oxytoca PCR (Not Detect) Klebsiella pneumoniae (Not Detect) List. monocytogenes PCR (Not Detect) N. meningitidis (PCR) (Not Detect) Proteus species (PCR) (Not Detect) Serratia marcescens PCR (Not Detect) Staphylococcus sp PCR (Not Detect) Staph aureus (PCR) (Not Detect) mecA-Methicil Res Gene (Not Detect) Streptococcus sp PCR (Not Detect) Group A Strep (PCR) (Not Detect) Strep agalactiae (PCR) (Not Detect) Strep pneumoniae (PCR) (Not Detect) P. aeruginosa (PCR) (Not Detect) Jules/B-Vanco Res Genes KPC-Carbap Res Gene PCR (Not Detect) 06/09/22 06/09/22 06/09/22 Range/Units 14:56 14:56 14:56 WBC (4.5-11.0) X10^3/uL RBC (4.5-5.9) X10^6/uL Hgb (13.5-17.5) g/dL Hct (41-53) % MCV (80-100) fL MCH (26-34) PG MCHC (30-36) % RDW (11.6-14.8) % Plt Count (150-400) X10^3/uL Neut % (Auto) (50-75) % Lymph % (Auto) (25-40) % Johnston % (Auto) (3-14) % Eos % (Auto) (2-4) % Baso % (Auto) (0-2) % Neut # (Auto) (9306-9129) /uL Lymph # (Auto) (9308-4896) /uL Johnston # (Auto) (0-900) /uL Eos # (Auto) (0-450) /uL Baso # (Auto) (0-100) /uL PT (10.1-12.7) SECONDS INR (0.9-1.3) APTT (26-36) SECONDS ABG pH (7.35-7.45) ABG pCO2 (35-45) mmHg ABG pO2 (80-100) mmHg ABG HCO3 (22-26) mmol/L ABG Total CO2 (21-31) mmol/L ABG O2 Saturation (95-100) % ABG Base Excess (-2-2) mmol/L FiO2 Sodium (137-145) mmol/L Potassium (3.4-5.1) mmol/L Chloride (98-107) mmol/L Carbon Dioxide (22-32) mmol/L BUN (9-20) mg/dL Creatinine (0.66-1.25) mg/dL Estimated GFR (>60) mL/min BUN/Creatinine Ratio (6-22) Glucose (80-110) mg/dL Lactate 2.8 H (0.7-2.1) mmol/L Calcium (8.4-10.2) mg/dL Total Bilirubin (0.2-1.3) mg/dL AST (17-59) IU/L ALT (<50) IU/L Alkaline Phosphatase (38-126) U/L Ammonia (9-30) umol/L Total Creatine Kinase (55-170) U/L CK-MB (CK-2) (<2.37) ng/mL CK-MB (CK-2) Rel Index (1.5-5.0) % Troponin I (0.01-0.034) ng/mL NT-Pro-B Natriuret Pep (<125) pg/mL Total Protein (6.3-8.2) g/dL Albumin (3.5-5.0) g/dL Globulin (1.7-4.1) g/dL Albumin/Globulin Ratio (1.0-2.8) Procalcitonin 0.16 (<0.5) ng/mL Urine Color Urine Appearance Urine pH (4.5-8.0) Ur Specific [place] (1.000-1.035) Urine Protein (Negative) Urine Glucose (UA) (Negative) g/dL Urine Ketones (NEGATIVE) Urine Occult Blood (Negative) Urine Nitrate (Negative) Urine Bilirubin (NEGATIVE) Ur Bilirubin Confirm (Negative) Urine Urobilinogen (0.2) E.U./dL Ur Leukocyte Esterase (NEGATIVE) Urine RBC (0-5/HPF) Urine WBC (0-5/HPF) Ur Squamous Epith Cells (0-5/HPF) Ur Transition Epith Cell (0-5/HPF) Urine Bacteria (None) Hyaline Casts (None) Granular Casts (None) Urine Mucus (Negative) Ur Culture Indicated? CSF Tube Number CSF Volume CSF Appearance (Clear) CSF Color (Colorless) CSF WBC (0-5) MONO/uL CSF RBC RBC /uL CSF Mononuclear WBCs CSF Polynuclear WBCs CSF Glucose (40-70) mg/dL CSF Total Protein (12-60) mg/dL CSF C.neoform/gat PCR (Not Detect) CSF CMV DNA (PCR) (Not Detect) CSF Enterovirus (PCR) (Not Detect) CSF E. coli (PCR) (Not Detect) CSF H. influenzae (PCR) (Not Detect) CSF HSV I (PCR) (Not Detect) CSF HSV II (PCR) (Not Detect) CSF HHV 6 (PCR) (Not Detect) CSF L.monocytogenes PCR (Not Detect) CSF N. meningitidis PCR (Not Detect) CSF Parechovirus (PCR) (Not Detect) CSF S. agalactiae (PCR) (Not Detect) CSF S. pneumoniae (PCR) (Not Detect) CSF VZV (PCR) (Not Detecte) U Opiates 300ng/mL cut (Negative) Ur Oxycodone Screen (Negative) Urine Methadone Screen (Negative) Ur Barbiturates Screen (Negative) U Tricyclic Antidepress (Negative) Ur Phencyclidine Scrn (Negative) Ur Amphetamines Screen (Negative) U Methamphetamines Scrn (Negative) Ur MDMA Scrn (Ecstasy) (Negative) U Benzodiazepines Scrn (Negative) Urine Cocaine Screen (Negative) U Marijuana (THC) Screen (Negative) Ethyl Alcohol ( - 10) mg/dL A. baumannii (PCR) Not detected (Not Detect) Xin albicans (PCR) Not detected (Not Detect) C. glabrata (PCR) Not detected (Not Detect) C. krusei (PCR) Not detected (Not Detect) C. parapsilosis (PCR) Not detected (Not Detect) C. tropicalis (PCR) Not detected (Not Detect) SARS-CoV-2 (PCR) (Negative) Enterobacteriac sp PCR Not detected (Not Detect) E. cloacae complex PCR Not detected (Not Detect) Enterococcus sp PCR Not detected (Not Detect) E. coli (PCR) Not detected (Not Detect) H. influenzae (PCR) Not detected (Not Detect) Klebsiella oxytoca PCR Not detected (Not Detect) Klebsiella pneumoniae Not detected (Not Detect) List. monocytogenes PCR Not detected (Not Detect) N. meningitidis (PCR) Not detected (Not Detect) Proteus species (PCR) Not detected (Not Detect) Serratia marcescens PCR Not detected (Not Detect) Staphylococcus sp PCR Detected H (Not Detect) Staph aureus (PCR) Not detected (Not Detect) mecA-Methicil Res Gene Detected H (Not Detect) Streptococcus sp PCR Not detected (Not Detect) Group A Strep (PCR) Not detected (Not Detect) Strep agalactiae (PCR) Not detected (Not Detect) Strep pneumoniae (PCR) Not detected (Not Detect) P. aeruginosa (PCR) Not detected (Not Detect) Jules/B-Vanco Res Genes Not Reportable KPC-Carbap Res Gene PCR Not detected (Not Detect) 06/09/22 06/09/22 06/09/22 Range/Units 17:20 18:00 18:00 WBC (4.5-11.0) X10^3/uL RBC (4.5-5.9) X10^6/uL Hgb (13.5-17.5) g/dL Hct (41-53) % MCV (80-100) fL MCH (26-34) PG MCHC (30-36) % RDW (11.6-14.8) % Plt Count (150-400) X10^3/uL Neut % (Auto) (50-75) % Lymph % (Auto) (25-40) % Johnston % (Auto) (3-14) % Eos % (Auto) (2-4) % Baso % (Auto) (0-2) % Neut # (Auto) (2001-8457) /uL Lymph # (Auto) (0781-8434) /uL Johnston # (Auto) (0-900) /uL Eos # (Auto) (0-450) /uL Baso # (Auto) (0-100) /uL PT (10.1-12.7) SECONDS INR (0.9-1.3) APTT (26-36) SECONDS ABG pH (7.35-7.45) ABG pCO2 (35-45) mmHg ABG pO2 (80-100) mmHg ABG HCO3 (22-26) mmol/L ABG Total CO2 (21-31) mmol/L ABG O2 Saturation (95-100) % ABG Base Excess (-2-2) mmol/L FiO2 Sodium (137-145) mmol/L Potassium (3.4-5.1) mmol/L Chloride (98-107) mmol/L Carbon Dioxide (22-32) mmol/L BUN (9-20) mg/dL Creatinine (0.66-1.25) mg/dL Estimated GFR (>60) mL/min BUN/Creatinine Ratio (6-22) Glucose (80-110) mg/dL Lactate 1.5 (0.7-2.1) mmol/L Calcium (8.4-10.2) mg/dL Total Bilirubin (0.2-1.3) mg/dL AST (17-59) IU/L ALT (<50) IU/L Alkaline Phosphatase (38-126) U/L Ammonia (9-30) umol/L Total Creatine Kinase (55-170) U/L CK-MB (CK-2) (<2.37) ng/mL CK-MB (CK-2) Rel Index (1.5-5.0) % Troponin I (0.01-0.034) ng/mL NT-Pro-B Natriuret Pep (<125) pg/mL Total Protein (6.3-8.2) g/dL Albumin (3.5-5.0) g/dL Globulin (1.7-4.1) g/dL Albumin/Globulin Ratio (1.0-2.8) Procalcitonin (<0.5) ng/mL Urine Color Urine Appearance Urine pH (4.5-8.0) Ur Specific Babbitt (1.000-1.035) Urine Protein (Negative) Urine Glucose (UA) (Negative) g/dL Urine Ketones (NEGATIVE) Urine Occult Blood (Negative) Urine Nitrate (Negative) Urine Bilirubin (NEGATIVE) Ur Bilirubin Confirm (Negative) Urine Urobilinogen (0.2) E.U./dL Ur Leukocyte Esterase (NEGATIVE) Urine RBC (0-5/HPF) Urine WBC (0-5/HPF) Ur Squamous Epith Cells (0-5/HPF) Ur Transition Epith Cell (0-5/HPF) Urine Bacteria (None) Hyaline Casts (None) Granular Casts (None) Urine Mucus (Negative) Ur Culture Indicated? CSF Tube Number CSF Volume CSF Appearance (Clear) CSF Color (Colorless) CSF WBC (0-5) MONO/uL CSF RBC RBC /uL CSF Mononuclear WBCs CSF Polynuclear WBCs CSF Glucose 72 H (40-70) mg/dL CSF Total Protein 102 H (12-60) mg/dL CSF C.neoform/gat PCR Not detected (Not Detect) CSF CMV DNA (PCR) Not detected (Not Detect) CSF Enterovirus (PCR) Not detected (Not Detect) CSF E. coli (PCR) Not detected (Not Detect) CSF H. influenzae (PCR) Not detected (Not Detect) CSF HSV I (PCR) Not detected (Not Detect) CSF HSV II (PCR) Not detected (Not Detect) CSF HHV 6 (PCR) Not detected (Not Detect) CSF L.monocytogenes PCR Not detected (Not Detect) CSF N. meningitidis PCR Not detected (Not Detect) CSF Parechovirus (PCR) Not detected (Not Detect) CSF S. agalactiae (PCR) Not detected (Not Detect) CSF S. pneumoniae (PCR) Not detected (Not Detect) CSF VZV (PCR) Not detected (Not Detecte) U Opiates 300ng/mL cut (Negative) Ur Oxycodone Screen (Negative) Urine Methadone Screen (Negative) Ur Barbiturates Screen (Negative) U Tricyclic Antidepress (Negative) Ur Phencyclidine Scrn (Negative) Ur Amphetamines Screen (Negative) U Methamphetamines Scrn (Negative) Ur MDMA Scrn (Ecstasy) (Negative) U Benzodiazepines Scrn (Negative) Urine Cocaine Screen (Negative) U Marijuana (THC) Screen (Negative) Ethyl Alcohol ( - 10) mg/dL A. baumannii (PCR) (Not Detect) Xin albicans (PCR) (Not Detect) C. glabrata (PCR) (Not Detect) C. krusei (PCR) (Not Detect) C. parapsilosis (PCR) (Not Detect) C. tropicalis (PCR) (Not Detect) SARS-CoV-2 (PCR) (Negative) Enterobacteriac sp PCR (Not Detect) E. cloacae complex PCR (Not Detect) Enterococcus sp PCR (Not Detect) E. coli (PCR) (Not Detect) H. influenzae (PCR) (Not Detect) Klebsiella oxytoca PCR (Not Detect) Klebsiella pneumoniae (Not Detect) List. monocytogenes PCR (Not Detect) N. meningitidis (PCR) (Not Detect) Proteus species (PCR) (Not Detect) Serratia marcescens PCR (Not Detect) Staphylococcus sp PCR (Not Detect) Staph aureus (PCR) (Not Detect) mecA-Methicil Res Gene (Not Detect) Streptococcus sp PCR (Not Detect) Group A Strep (PCR) (Not Detect) Strep agalactiae (PCR) (Not Detect) Strep pneumoniae (PCR) (Not Detect) P. aeruginosa (PCR) (Not Detect) Jules/B-Vanco Res Genes KPC-Carbap Res Gene PCR (Not Detect) 06/09/22 06/09/22 Range/Units 18:00 18:00 WBC (4.5-11.0) X10^3/uL RBC (4.5-5.9) X10^6/uL Hgb (13.5-17.5) g/dL Hct (41-53) % MCV (80-100) fL MCH (26-34) PG MCHC (30-36) % RDW (11.6-14.8) % Plt Count (150-400) X10^3/uL Neut % (Auto) (50-75) % Lymph % (Auto) (25-40) % Johnston % (Auto) (3-14) % Eos % (Auto) (2-4) % Baso % (Auto) (0-2) % Neut # (Auto) (1751-9581) /uL Lymph # (Auto) (8649-4951) /uL Johnston # (Auto) (0-900) /uL Eos # (Auto) (0-450) /uL Baso # (Auto) (0-100) /uL PT (10.1-12.7) SECONDS INR (0.9-1.3) APTT (26-36) SECONDS ABG pH (7.35-7.45) ABG pCO2 (35-45) mmHg ABG pO2 (80-100) mmHg ABG HCO3 (22-26) mmol/L ABG Total CO2 (21-31) mmol/L ABG O2 Saturation (95-100) % ABG Base Excess (-2-2) mmol/L FiO2 Sodium (137-145) mmol/L Potassium (3.4-5.1) mmol/L Chloride (98-107) mmol/L Carbon Dioxide (22-32) mmol/L BUN (9-20) mg/dL Creatinine (0.66-1.25) mg/dL Estimated GFR (>60) mL/min BUN/Creatinine Ratio (6-22) Glucose (80-110) mg/dL Lactate (0.7-2.1) mmol/L Calcium (8.4-10.2) mg/dL Total Bilirubin (0.2-1.3) mg/dL AST (17-59) IU/L ALT (<50) IU/L Alkaline Phosphatase (38-126) U/L Ammonia (9-30) umol/L Total Creatine Kinase (55-170) U/L CK-MB (CK-2) (<2.37) ng/mL CK-MB (CK-2) Rel Index (1.5-5.0) % Troponin I (0.01-0.034) ng/mL NT-Pro-B Natriuret Pep (<125) pg/mL Total Protein (6.3-8.2) g/dL Albumin (3.5-5.0) g/dL Globulin (1.7-4.1) g/dL Albumin/Globulin Ratio (1.0-2.8) Procalcitonin (<0.5) ng/mL Urine Color Urine Appearance Urine pH (4.5-8.0) Ur Specific [place] (1.000-1.035) Urine Protein (Negative) Urine Glucose (UA) (Negative) g/dL Urine Ketones (NEGATIVE) Urine Occult Blood (Negative) Urine Nitrate (Negative) Urine Bilirubin (NEGATIVE) Ur Bilirubin Confirm (Negative) Urine Urobilinogen (0.2) E.U./dL Ur Leukocyte Esterase (NEGATIVE) Urine RBC (0-5/HPF) Urine WBC (0-5/HPF) Ur Squamous Epith Cells (0-5/HPF) Ur Transition Epith Cell (0-5/HPF) Urine Bacteria (None) Hyaline Casts (None) Granular Casts (None) Urine Mucus (Negative) Ur Culture Indicated? CSF Tube Number 1 4 CSF Volume 1.0 ml 1.0 ml CSF Appearance Clear Clear (Clear) CSF Color Colorless Colorless (Colorless) CSF WBC 0 0 (0-5) MONO/uL CSF RBC 0 0 RBC /uL CSF Mononuclear WBCs Not Reportable Not Reportable CSF Polynuclear WBCs Not Reportable Not Reportable CSF Glucose (40-70) mg/dL CSF Total Protein (12-60) mg/dL CSF C.neoform/gat PCR (Not Detect) CSF CMV DNA (PCR) (Not Detect) CSF Enterovirus (PCR) (Not Detect) CSF E. coli (PCR) (Not Detect) CSF H. influenzae (PCR) (Not Detect) CSF HSV I (PCR) (Not Detect) CSF HSV II (PCR) (Not Detect) CSF HHV 6 (PCR) (Not Detect) CSF L.monocytogenes PCR (Not Detect) CSF N. meningitidis PCR (Not Detect) CSF Parechovirus (PCR) (Not Detect) CSF S. agalactiae (PCR) (Not Detect) CSF S. pneumoniae (PCR) (Not Detect) CSF VZV (PCR) (Not Detecte) U Opiates 300ng/mL cut (Negative) Ur Oxycodone Screen (Negative) Urine Methadone Screen (Negative) Ur Barbiturates Screen (Negative) U Tricyclic Antidepress (Negative) Ur Phencyclidine Scrn (Negative) Ur Amphetamines Screen (Negative) U Methamphetamines Scrn (Negative) Ur MDMA Scrn (Ecstasy) (Negative) U Benzodiazepines Scrn (Negative) Urine Cocaine Screen (Negative) U Marijuana (THC) Screen (Negative) Ethyl Alcohol ( - 10) mg/dL A. baumannii (PCR) (Not Detect) Xin albicans (PCR) (Not Detect) C. glabrata (PCR) (Not Detect) C. krusei (PCR) (Not Detect) C. parapsilosis (PCR) (Not Detect) C. tropicalis (PCR) (Not Detect) SARS-CoV-2 (PCR) (Negative) Enterobacteriac sp PCR (Not Detect) E. cloacae complex PCR (Not Detect) Enterococcus sp PCR (Not Detect) E. coli (PCR) (Not Detect) H. influenzae (PCR) (Not Detect) Klebsiella oxytoca PCR (Not Detect) Klebsiella pneumoniae (Not Detect) List. monocytogenes PCR (Not Detect) N. meningitidis (PCR) (Not Detect) Proteus species (PCR) (Not Detect) Serratia marcescens PCR (Not Detect) Staphylococcus sp PCR (Not Detect) Staph aureus (PCR) (Not Detect) mecA-Methicil Res Gene (Not Detect) Streptococcus sp PCR (Not Detect) Group A Strep (PCR) (Not Detect) Strep agalactiae (PCR) (Not Detect) Strep pneumoniae (PCR) (Not Detect) P. aeruginosa (PCR) (Not Detect) Jules/B-Vanco Res Genes KPC-Carbap Res Gene PCR (Not Detect) Point of Care Testing Glucose POC 105 Imaging Data CTA - brain/neck: Radiologist's Impression: [address] [address] [address] Scan Report Signed Patient: Dale Hahn MR#: [id number] : 1950 Acct:[id number] Age/Sex: 71 / M Date of Service: 06/09/22 Loc: ED Accession Number: [id number] ?? Procedure: CT angio head and neck Ordering Provider: Margaret Caal D.O. PROCEDURE:? CT ANGIO HEAD AND NECK ? INDICATIONS:? unresponsive ? TECHNIQUE:? ? After the administration of intravenous contrast, 1 mm thick sections acquired from the aortic arch through the [place] of [place].? Post-contrast 4.5 mm thick sections then re-acquired from the foramen magnum to the vertex.? 3-dimensional otpcxuv-urafcsjpp-ydowivucgq (MIP) and/or volume rendering reformats were acquired of the central intracranial vasculature and neck separately. For radiation dose reduction, the following was used:? automated exposure control, adjustment of mA and/or kV according to patient size.? ? COMPARISON:? [facility], MR, STROKE PROTOCOL, 06/22/2012, 10:22.? [facility], CT, CT STROKE, 06/09/2022, 13:43. ? FINDINGS:? Image quality:? Excellent.? ? BRAIN:? The ventricular system and cortical sulci demonstrate atrophy, consistent for the patient's stated age. There are areas of hypodensity within the periventricular and subcortical white matter.? There is no acute intra-or extra axial fluid collection.? 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 No acute hemorrhage, mass lesion or midline shift. Brainstem is unremarkable. Globes are symmetrical. Sinuses are aerated. Osseous structures are intact. ? HEAD CT ANGIOGRAPHY:? Anterior circulation:? Intracranial internal carotid arteries are normal in size and flow.? The flow within the paired anterior cerebral arteries is normal and symmetric.? The flow within the middle cerebral arteries is normal and symmetric.? The anterior communicating artery is seen.? No aneurysms are seen.? ? Posterior circulation:? There is a slight left vertebral artery dominance.? Visualized portions of the vertebral arteries demonstrate normal caliber, and join to form a normal appearing basilar artery.? Flow within the posterior cerebral arteries is normal and symmetric.? No aneurysms are seen.? 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 ? NECK CT ANGIOGRAPHY:? The origins of the left and right common, and external carotid arteries demonstrate no areas of hemodynamically significant stenosis, vascular occlusion or aneurysmal dilation. ?Calcifications are present at the origin of the internal carotid arteries bilaterally.? There is approximately 50% stenosis at the origin of the right internal carotid artery.? Origins of the left vertebral artery demonstrates no areas of hemodynamically significant stenosis, vascular occlusion or aneurysmal dilation.? There is lack of opacification at the origin of the right vertebral artery.? Aortic arch demonstrates conventional anatomy. ? ? There is appearance of occlusion of the right internal jugular vein extending to the proximal SVC.? In addition, filling defects are also identified within the right subclavian vein. ? Scattered opacities are noted in the visualized portion of the left lower lobe. ? .? IMPRESSION:? ? 1. No acute intracranial process. ? 2. Moderate atrophy and chronic microvascular ischemic changes. ? 3. No areas of hemodynamically significant stenosis, vascular occlusion or aneurysmal dilation within the anterior circulation. ? 4. Approximate 50% stenosis at the origin of the right internal carotid artery. ? 5. Non opacification at the origin of the right vertebral artery limiting evaluation.? There is suspected to be likely at least moderate stenosis. ? 6. 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 ? 7. Scattered opacities within the left lower lobe, possibly atelectasis. ? Any quantitative measurements of stenosis were performed using NASCET criteria.? ? ? Dictated by: Radha Sharma M.D. on 06/09/2022 at 14:35 ? ? Approved by: Radha Sharma M.D. on 06/09/2022 at 14:43?? CT scan - chest: Radiologist's Impression: Close Chest CTA (Signed) Radha Sharma - 06/09/22 Head/Neck CTA (Signed) Radha Sharma - 06/09/22 Chest X-Ray (Signed) Andrea Pierre - 06/09/[address] (Signed) Pako Robison - 06/09/22 Launch?[place] [id number] CT Scan Report Signed Patient: Dale Ortega MR#: [id number] : 1950 Acct:[id number] Age/Sex: 71 / M Date of Service: 06/09/22 Loc: ED Accession Number: [id number] ?? Procedure: CT angio chest PE protocol Ordering Provider: Margaret Caal D.O. PROCEDURE:? CT ANGIO CHEST PE PROTOCOL ? INDICATIONS:? pe, clot extending toward SVC on CTA head/neck ? TECHNIQUE:? After the administration of intravenous contrast, 2 mm thick sections acquired from the pulmonary apices to the posterior costophrenic angles.? 3-dimensional maximum intensity projection (MIP) coronal and sagittal reformats were then acquired through the thorax.? For radiation dose reduction, the following was used:? automated exposure control, adjustment of mA and/or kV according to patient size.? ? COMPARISON:? [facility], CR, XR CHEST 1V, 06/09/2022, 13:37. ? FINDINGS:? Image quality:? Excellent.? ? Pulmonary arteries:? Pulmonary arteries are normal in size, and demonstrate no intraluminal filling defects to suggest central pulmonary embolism.? ? Lungs and pleura:? Consolidative opacities are present within the left base and to a much lesser degree in the right base. ? Mediastinum:? Heart size is normal, without pericardial effusion.? No mediastinal or hilar adenopathy.? Thoracic aorta is normal in caliber and enhancement.? Esophagus is normal in caliber, without hiatal hernia.? Endotracheal tube is present in appropriate position. ? Bones and chest wall:? No suspicious bony lesions.? Ribs and thoracic spine appear intact throughout.? Thyroid gland is unremarkable.? No axillary or supraclavicular adenopathy.? ? Abdomen:? Visualized upper abdominal solid organs appear normal in the early arterial phase of enhancement.? ? IMPRESSION:? ? No pulmonary embolism.? Consolidative changes within the bases more prominent on the left.? This could represent prominent dependent change/atelectasis.? However, developing pneumonia and/or atelectasis should be considered particularly on the left. ? ? Dictated by: Radha Sharma M.D. on 06/09/2022 at 16:25 ? ? Approved by: Radha Sharma M.D. on 06/09/2022 at 16:27?? ECG Data Attestation: I personally reviewed and interpreted this ECG as follows: Interpretation: Sinus rhythm T-wave depression in 2 3 AVF as well as lateral leads. No elevation in AVR elsewhere appreciated. Patient has prior EKGs were T-waves are flattened in inferior leads but not depressed or inverted. MDM Narrative Medical decision making narrative: This is a 71-year-old male with no known medical issues reported but likely does not see a physician regularly. Patient was found down unclear how long but after further discussion with DPOA at bedside patient had last communication Tuesday. And template communication today which was unsuccessful so they went to the home and found patient on the floor. They note that patient's clothes had been taken off and were soiled with urine in the living and that patient was lying on the bed but look like they had knocked their telephone and bedside table over. Patient developed a fever here, has been slightly hypertensive but not tachycardic. Initial head CT showed no acute change, CT angio shows clot in the right IJ, subclavian SVC, CT PE does not show changes. Workup so far includes elevated hemoglobin, no significant change to coags, elevation in creatinine unsure if this is acute versus chronic without significant electrolyte or LFT changes other than elevated bilirubin. Patient's lactate was 2.8 and trended to normal. CKs in the 500 range. Ammonia is less than 9, troponin is negative with a negative procalcitonin. Urine shows protein, ketones blood and bilirubin but no signs of infection. Rapid drug screen and alcohol is negative. COVID is negative. Patient was planned to be started on heparin but discussed with tell appeals referee and tele stroke about timing of lumbar puncture and heparin. Patient was tapped with plan to start heparin several hours after to prevent bleeding. Discussed with the hospitalist as well. Patient may need transfer for MRI brain/EEG particularly if CSF is negative. At this time patient is full code but discussion with DPOA they state if the patient had minimal likelihood of improvement as he progresses through his illness he would likely not wish for persistent treatment. Patient signed out to Dr. Hardin while awaiting CSF results for final disposition. <Earl Hardin, DO - Last Filed: 06/09/22 23:57> Lab Data Labs: Lab Results 06/09/22 06/09/22 06/09/22 Range/Units 14:36 14:36 14:37 WBC (4.5-11.0) X10^3/uL RBC (4.5-5.9) X10^6/uL Hgb (13.5-17.5) g/dL Hct (41-53) % MCV (80-100) fL MCH (26-34) PG MCHC (30-36) % RDW (11.6-14.8) % Plt Count (150-400) X10^3/uL Neut % (Auto) (50-75) % Lymph % (Auto) (25-40) % Johnston % (Auto) (3-14) % Eos % (Auto) (2-4) % Baso % (Auto) (0-2) % Neut # (Auto) (9599-9855) /uL Lymph # (Auto) (1221-5567) /uL Johnston # (Auto) (0-900) /uL Eos # (Auto) (0-450) /uL Baso # (Auto) (0-100) /uL PT (10.1-12.7) SECONDS INR (0.9-1.3) APTT (26-36) SECONDS ABG pH 7.45 (7.35-7.45) ABG pCO2 32.7 L (35-45) mmHg ABG pO2 220 H (80-100) mmHg ABG HCO3 23 (22-26) mmol/L ABG Total CO2 24 (21-31) mmol/L ABG O2 Saturation 100 (95-100) % ABG Base Excess -1.0 (-2-2) mmol/L FiO2 100 Sodium (137-145) mmol/L Potassium (3.4-5.1) mmol/L Chloride (98-107) mmol/L Carbon Dioxide (22-32) mmol/L BUN (9-20) mg/dL Creatinine (0.66-1.25) mg/dL Estimated GFR (>60) mL/min BUN/Creatinine Ratio (6-22) Glucose (80-110) mg/dL Lactate (0.7-2.1) mmol/L Calcium (8.4-10.2) mg/dL Total Bilirubin (0.2-1.3) mg/dL AST (17-59) IU/L ALT (<50) IU/L Alkaline Phosphatase (38-126) U/L Ammonia (9-30) umol/L Total Creatine Kinase (55-170) U/L CK-MB (CK-2) (<2.37) ng/mL CK-MB (CK-2) Rel Index (1.5-5.0) % Troponin I (0.01-0.034) ng/mL NT-Pro-B Natriuret Pep (<125) pg/mL Total Protein (6.3-8.2) g/dL Albumin (3.5-5.0) g/dL Globulin (1.7-4.1) g/dL Albumin/Globulin Ratio (1.0-2.8) Procalcitonin (<0.5) ng/mL Urine Color Yellow Urine Appearance Clear Urine pH 5.0 (4.5-8.0) Ur Specific Babbitt 1.025 (1.000-1.035) Urine Protein 1+ H (Negative) Urine Glucose (UA) Negative (Negative) g/dL Urine Ketones 1+ H (NEGATIVE) Urine Occult Blood 1+ H (Negative) Urine Nitrate Negative (Negative) Urine Bilirubin 1+ H (NEGATIVE) Ur Bilirubin Confirm Negative (Negative) Urine Urobilinogen 1.0 (0.2) E.U./dL Ur Leukocyte Esterase Negative (NEGATIVE) Urine RBC 1-5/hpf (0-5/HPF) Urine WBC 1-5/hpf (0-5/HPF) Ur Squamous Epith Cells 0-1 /hpf (0-5/HPF) Ur Transition Epith Cell 0-1/hpf (0-5/HPF) Urine Bacteria Occasional (0-1) (None) Hyaline Casts 10-30/lpf (None) Granular Casts 10-30/lpf (None) Urine Mucus 2+ H (Negative) Ur Culture Indicated? Cult not indicated CSF Tube Number CSF Volume CSF Appearance (Clear) CSF Color (Colorless) CSF WBC (0-5) MONO/uL CSF RBC RBC /uL CSF Mononuclear WBCs CSF Polynuclear WBCs CSF Glucose (40-70) mg/dL CSF Total Protein (12-60) mg/dL CSF C.neoform/gat PCR (Not Detect) CSF CMV DNA (PCR) (Not Detect) CSF Enterovirus (PCR) (Not Detect) CSF E. coli (PCR) (Not Detect) CSF H. influenzae (PCR) (Not Detect) CSF HSV I (PCR) (Not Detect) CSF HSV II (PCR) (Not Detect) CSF HHV 6 (PCR) (Not Detect) CSF L.monocytogenes PCR (Not Detect) CSF N. meningitidis PCR (Not Detect) CSF Parechovirus (PCR) (Not Detect) CSF S. agalactiae (PCR) (Not Detect) CSF S. pneumoniae (PCR) (Not Detect) CSF VZV (PCR) (Not Detecte) U Opiates 300ng/mL cut Negative (Negative) Ur Oxycodone Screen Negative (Negative) Urine Methadone Screen Negative (Negative) Ur Barbiturates Screen Negative (Negative) U Tricyclic Antidepress Negative (Negative) Ur Phencyclidine Scrn Negative (Negative) Ur Amphetamines Screen Negative (Negative) U Methamphetamines Scrn Negative (Negative) Ur MDMA Scrn (Ecstasy) Negative (Negative) U Benzodiazepines Scrn Negative (Negative) Urine Cocaine Screen Negative (Negative) U Marijuana (THC) Screen Negative (Negative) Ethyl Alcohol ( - 10) mg/dL A. baumannii (PCR) (Not Detect) Xin albicans (PCR) (Not Detect) C. glabrata (PCR) (Not Detect) C. krusei (PCR) (Not Detect) C. parapsilosis (PCR) (Not Detect) C. tropicalis (PCR) (Not Detect) SARS-CoV-2 (PCR) (Negative) Enterobacteriac sp PCR (Not Detect) E. cloacae complex PCR (Not Detect) Enterococcus sp PCR (Not Detect) E. coli (PCR) (Not Detect) H. influenzae (PCR) (Not Detect) Klebsiella oxytoca PCR (Not Detect) Klebsiella pneumoniae (Not Detect) List. monocytogenes PCR (Not Detect) N. meningitidis (PCR) (Not Detect) Proteus species (PCR) (Not Detect) Serratia marcescens PCR (Not Detect) Staphylococcus sp PCR (Not Detect) Staph aureus (PCR) (Not Detect) mecA-Methicil Res Gene (Not Detect) Streptococcus sp PCR (Not Detect) Group A Strep (PCR) (Not Detect) Strep agalactiae (PCR) (Not Detect) Strep pneumoniae (PCR) (Not Detect) P. aeruginosa (PCR) (Not Detect) Jules/B-Vanco Res Genes KPC-Carbap Res Gene PCR (Not Detect) 06/09/22 06/09/22 06/09/22 Range/Units 14:49 14:56 14:56 WBC 6.5 (4.5-11.0) X10^3/uL RBC 5.64 (4.5-5.9) X10^6/uL Hgb 19.0 H (13.5-17.5) g/dL Hct 55.5 H (41-53) % MCV 98.4 (80-100) fL MCH 33.7 (26-34) PG MCHC 34.2 (30-36) % RDW 13.4 (11.6-14.8) % Plt Count 229 (150-400) X10^3/uL Neut % (Auto) 79.8 H (50-75) % Lymph % (Auto) 13.1 L (25-40) % Johnston % (Auto) 6.7 (3-14) % Eos % (Auto) 0.1 L (2-4) % Baso % (Auto) 0.3 (0-2) % Neut # (Auto) 5200 (6060-4075) /uL Lymph # (Auto) 900 L (6632-8350) /uL Johnston # (Auto) 400 (0-900) /uL Eos # (Auto) 0 (0-450) /uL Baso # (Auto) 0 (0-100) /uL PT 13.4 H (10.1-12.7) SECONDS INR 1.2 (0.9-1.3) APTT 31 (26-36) SECONDS ABG pH (7.35-7.45) ABG pCO2 (35-45) mmHg ABG pO2 (80-100) mmHg ABG HCO3 (22-26) mmol/L ABG Total CO2 (21-31) mmol/L ABG O2 Saturation (95-100) % ABG Base Excess (-2-2) mmol/L FiO2 Sodium (137-145) mmol/L Potassium (3.4-5.1) mmol/L Chloride (98-107) mmol/L Carbon Dioxide (22-32) mmol/L BUN (9-20) mg/dL Creatinine (0.66-1.25) mg/dL Estimated GFR (>60) mL/min BUN/Creatinine Ratio (6-22) Glucose (80-110) mg/dL Lactate (0.7-2.1) mmol/L Calcium (8.4-10.2) mg/dL Total Bilirubin (0.2-1.3) mg/dL AST (17-59) IU/L ALT (<50) IU/L Alkaline Phosphatase (38-126) U/L Ammonia (9-30) umol/L Total Creatine Kinase (55-170) U/L CK-MB (CK-2) (<2.37) ng/mL CK-MB (CK-2) Rel Index (1.5-5.0) % Troponin I (0.01-0.034) ng/mL NT-Pro-B Natriuret Pep (<125) pg/mL Total Protein (6.3-8.2) g/dL Albumin (3.5-5.0) g/dL Globulin (1.7-4.1) g/dL Albumin/Globulin Ratio (1.0-2.8) Procalcitonin (<0.5) ng/mL Urine Color Urine Appearance Urine pH (4.5-8.0) Ur Specific Babbitt (1.000-1.035) Urine Protein (Negative) Urine Glucose (UA) (Negative) g/dL Urine Ketones (NEGATIVE) Urine Occult Blood (Negative) Urine Nitrate (Negative) Urine Bilirubin (NEGATIVE) Ur Bilirubin Confirm (Negative) Urine Urobilinogen (0.2) E.U./dL Ur Leukocyte Esterase (NEGATIVE) Urine RBC (0-5/HPF) Urine WBC (0-5/HPF) Ur Squamous Epith Cells (0-5/HPF) Ur Transition Epith Cell (0-5/HPF) Urine Bacteria (None) Hyaline Casts (None) Granular Casts (None) Urine Mucus (Negative) Ur Culture Indicated? CSF Tube Number CSF Volume CSF Appearance (Clear) CSF Color (Colorless) CSF WBC (0-5) MONO/uL CSF RBC RBC /uL CSF Mononuclear WBCs CSF Polynuclear WBCs CSF Glucose (40-70) mg/dL CSF Total Protein (12-60) mg/dL CSF C.neoform/gat PCR (Not Detect) CSF CMV DNA (PCR) (Not Detect) CSF Enterovirus (PCR) (Not Detect) CSF E. coli (PCR) (Not Detect) CSF H. influenzae (PCR) (Not Detect) CSF HSV I (PCR) (Not Detect) CSF HSV II (PCR) (Not Detect) CSF HHV 6 (PCR) (Not Detect) CSF L.monocytogenes PCR (Not Detect) CSF N. meningitidis PCR (Not Detect) CSF Parechovirus (PCR) (Not Detect) CSF S. agalactiae (PCR) (Not Detect) CSF S. pneumoniae (PCR) (Not Detect) CSF VZV (PCR) (Not Detecte) U Opiates 300ng/mL cut (Negative) Ur Oxycodone Screen (Negative) Urine Methadone Screen (Negative) Ur Barbiturates Screen (Negative) U Tricyclic Antidepress (Negative) Ur Phencyclidine Scrn (Negative) Ur Amphetamines Screen (Negative) U Methamphetamines Scrn (Negative) Ur MDMA Scrn (Ecstasy) (Negative) U Benzodiazepines Scrn (Negative) Urine Cocaine Screen (Negative) U Marijuana (THC) Screen (Negative) Ethyl Alcohol ( - 10) mg/dL A. baumannii (PCR) (Not Detect) Xin albicans (PCR) (Not Detect) C. glabrata (PCR) (Not Detect) C. krusei (PCR) (Not Detect) C. parapsilosis (PCR) (Not Detect) C. tropicalis (PCR) (Not Detect) SARS-CoV-2 (PCR) Negative (Negative) Enterobacteriac sp PCR (Not Detect) E. cloacae complex PCR (Not Detect) Enterococcus sp PCR (Not Detect) E. coli (PCR) (Not Detect) H. influenzae (PCR) (Not Detect) Klebsiella oxytoca PCR (Not Detect) Klebsiella pneumoniae (Not Detect) List. monocytogenes PCR (Not Detect) N. meningitidis (PCR) (Not Detect) Proteus species (PCR) (Not Detect) Serratia marcescens PCR (Not Detect) Staphylococcus sp PCR (Not Detect) Staph aureus (PCR) (Not Detect) mecA-Methicil Res Gene (Not Detect) Streptococcus sp PCR (Not Detect) Group A Strep (PCR) (Not Detect) Strep agalactiae (PCR) (Not Detect) Strep pneumoniae (PCR) (Not Detect) P. aeruginosa (PCR) (Not Detect) Jules/B-Vanco Res Genes KPC-Carbap Res Gene PCR (Not Detect) 06/09/22 06/09/22 06/09/22 Range/Units 14:56 14:56 14:56 WBC (4.5-11.0) X10^3/uL RBC (4.5-5.9) X10^6/uL Hgb (13.5-17.5) g/dL Hct (41-53) % MCV (80-100) fL MCH (26-34) PG MCHC (30-36) % RDW (11.6-14.8) % Plt Count (150-400) X10^3/uL Neut % (Auto) (50-75) % Lymph % (Auto) (25-40) % Johnston % (Auto) (3-14) % Eos % (Auto) (2-4) % Baso % (Auto) (0-2) % Neut # (Auto) (7286-8874) /uL Lymph # (Auto) (3619-9468) /uL Johnston # (Auto) (0-900) /uL Eos # (Auto) (0-450) /uL Baso # (Auto) (0-100) /uL PT (10.1-12.7) SECONDS INR (0.9-1.3) APTT (26-36) SECONDS ABG pH (7.35-7.45) ABG pCO2 (35-45) mmHg ABG pO2 (80-100) mmHg ABG HCO3 (22-26) mmol/L ABG Total CO2 (21-31) mmol/L ABG O2 Saturation (95-100) % ABG Base Excess (-2-2) mmol/L FiO2 Sodium 135 L (137-145) mmol/L Potassium 4.5 (3.4-5.1) mmol/L Chloride 98 (98-107) mmol/L Carbon Dioxide 24 (22-32) mmol/L BUN 28 H (9-20) mg/dL Creatinine 1.42 H (0.66-1.25) mg/dL Estimated GFR 53 L (>60) mL/min BUN/Creatinine Ratio 19.7 (6-22) Glucose 123 H (80-110) mg/dL Lactate (0.7-2.1) mmol/L Calcium 8.8 (8.4-10.2) mg/dL Total Bilirubin 2.4 H (0.2-1.3) mg/dL AST 38 (17-59) IU/L ALT 20 (<50) IU/L Alkaline Phosphatase 59 (38-126) U/L Ammonia < 9 L (9-30) umol/L Total Creatine Kinase 512 H (55-170) U/L CK-MB (CK-2) 1.94 (<2.37) ng/mL CK-MB (CK-2) Rel Index 0.4 L (1.5-5.0) % Troponin I < 0.012 (0.01-0.034) ng/mL NT-Pro-B Natriuret Pep 516 H (<125) pg/mL Total Protein 9.2 H (6.3-8.2) g/dL Albumin 4.6 (3.5-5.0) g/dL Globulin 4.6 H (1.7-4.1) g/dL Albumin/Globulin Ratio 1.0 (1.0-2.8) Procalcitonin (<0.5) ng/mL Urine Color Urine Appearance Urine pH (4.5-8.0) Ur Specific Babbitt (1.000-1.035) Urine Protein (Negative) Urine Glucose (UA) (Negative) g/dL Urine Ketones (NEGATIVE) Urine Occult Blood (Negative) Urine Nitrate (Negative) Urine Bilirubin (NEGATIVE) Ur Bilirubin Confirm (Negative) Urine Urobilinogen (0.2) E.U./dL Ur Leukocyte Esterase (NEGATIVE) Urine RBC (0-5/HPF) Urine WBC (0-5/HPF) Ur Squamous Epith Cells (0-5/HPF) Ur Transition Epith Cell (0-5/HPF) Urine Bacteria (None) Hyaline Casts (None) Granular Casts (None) Urine Mucus (Negative) Ur Culture Indicated? CSF Tube Number CSF Volume CSF Appearance (Clear) CSF Color (Colorless) CSF WBC (0-5) MONO/uL CSF RBC RBC /uL CSF Mononuclear WBCs CSF Polynuclear WBCs CSF Glucose (40-70) mg/dL CSF Total Protein (12-60) mg/dL CSF C.neoform/gat PCR (Not Detect) CSF CMV DNA (PCR) (Not Detect) CSF Enterovirus (PCR) (Not Detect) CSF E. coli (PCR) (Not Detect) CSF H. influenzae (PCR) (Not Detect) CSF HSV I (PCR) (Not Detect) CSF HSV II (PCR) (Not Detect) CSF HHV 6 (PCR) (Not Detect) CSF L.monocytogenes PCR (Not Detect) CSF N. meningitidis PCR (Not Detect) CSF Parechovirus (PCR) (Not Detect) CSF S. agalactiae (PCR) (Not Detect) CSF S. pneumoniae (PCR) (Not Detect) CSF VZV (PCR) (Not Detecte) U Opiates 300ng/mL cut (Negative) Ur Oxycodone Screen (Negative) Urine Methadone Screen (Negative) Ur Barbiturates Screen (Negative) U Tricyclic Antidepress (Negative) Ur Phencyclidine Scrn (Negative) Ur Amphetamines Screen (Negative) U Methamphetamines Scrn (Negative) Ur MDMA Scrn (Ecstasy) (Negative) U Benzodiazepines Scrn (Negative) Urine Cocaine Screen (Negative) U Marijuana (THC) Screen (Negative) Ethyl Alcohol < 10 ( - 10) mg/dL A. baumannii (PCR) (Not Detect) Xin albicans (PCR) (Not Detect) C. glabrata (PCR) (Not Detect) C. krusei (PCR) (Not Detect) C. parapsilosis (PCR) (Not Detect) C. tropicalis (PCR) (Not Detect) SARS-CoV-2 (PCR) (Negative) Enterobacteriac sp PCR (Not Detect) E. cloacae complex PCR (Not Detect) Enterococcus sp PCR (Not Detect) E. coli (PCR) (Not Detect) H. influenzae (PCR) (Not Detect) Klebsiella oxytoca PCR (Not Detect) Klebsiella pneumoniae (Not Detect) List. monocytogenes PCR (Not Detect) N. meningitidis (PCR) (Not Detect) Proteus species (PCR) (Not Detect) Serratia marcescens PCR (Not Detect) Staphylococcus sp PCR (Not Detect) Staph aureus (PCR) (Not Detect) mecA-Methicil Res Gene (Not Detect) Streptococcus sp PCR (Not Detect) Group A Strep (PCR) (Not Detect) Strep agalactiae (PCR) (Not Detect) Strep pneumoniae (PCR) (Not Detect) P. aeruginosa (PCR) (Not Detect) Jules/B-Vanco Res Genes KPC-Carbap Res Gene PCR (Not Detect) 06/09/22 06/09/22 06/09/22 Range/Units 14:56 14:56 14:56 WBC (4.5-11.0) X10^3/uL RBC (4.5-5.9) X10^6/uL Hgb (13.5-17.5) g/dL Hct (41-53) % MCV (80-100) fL MCH (26-34) PG MCHC (30-36) % RDW (11.6-14.8) % Plt Count (150-400) X10^3/uL Neut % (Auto) (50-75) % Lymph % (Auto) (25-40) % Johnston % (Auto) (3-14) % Eos % (Auto) (2-4) % Baso % (Auto) (0-2) % Neut # (Auto) (9782-4525) /uL Lymph # (Auto) (8009-7376) /uL Johnston # (Auto) (0-900) /uL Eos # (Auto) (0-450) /uL Baso # (Auto) (0-100) /uL PT (10.1-12.7) SECONDS INR (0.9-1.3) APTT (26-36) SECONDS ABG pH (7.35-7.45) ABG pCO2 (35-45) mmHg ABG pO2 (80-100) mmHg ABG HCO3 (22-26) mmol/L ABG Total CO2 (21-31) mmol/L ABG O2 Saturation (95-100) % ABG Base Excess (-2-2) mmol/L FiO2 Sodium (137-145) mmol/L Potassium (3.4-5.1) mmol/L Chloride (98-107) mmol/L Carbon Dioxide (22-32) mmol/L BUN (9-20) mg/dL Creatinine (0.66-1.25) mg/dL Estimated GFR (>60) mL/min BUN/Creatinine Ratio (6-22) Glucose (80-110) mg/dL Lactate 2.8 H (0.7-2.1) mmol/L Calcium (8.4-10.2) mg/dL Total Bilirubin (0.2-1.3) mg/dL AST (17-59) IU/L ALT (<50) IU/L Alkaline Phosphatase (38-126) U/L Ammonia (9-30) umol/L Total Creatine Kinase (55-170) U/L CK-MB (CK-2) (<2.37) ng/mL CK-MB (CK-2) Rel Index (1.5-5.0) % Troponin I (0.01-0.034) ng/mL NT-Pro-B Natriuret Pep (<125) pg/mL Total Protein (6.3-8.2) g/dL Albumin (3.5-5.0) g/dL Globulin (1.7-4.1) g/dL Albumin/Globulin Ratio (1.0-2.8) Procalcitonin 0.16 (<0.5) ng/mL Urine Color Urine Appearance Urine pH (4.5-8.0) Ur Specific Babbitt (1.000-1.035) Urine Protein (Negative) Urine Glucose (UA) (Negative) g/dL Urine Ketones (NEGATIVE) Urine Occult Blood (Negative) Urine Nitrate (Negative) Urine Bilirubin (NEGATIVE) Ur Bilirubin Confirm (Negative) Urine Urobilinogen (0.2) E.U./dL Ur Leukocyte Esterase (NEGATIVE) Urine RBC (0-5/HPF) Urine WBC (0-5/HPF) Ur Squamous Epith Cells (0-5/HPF) Ur Transition Epith Cell (0-5/HPF) Urine Bacteria (None) Hyaline Casts (None) Granular Casts (None) Urine Mucus (Negative) Ur Culture Indicated? CSF Tube Number CSF Volume CSF Appearance (Clear) CSF Color (Colorless) CSF WBC (0-5) MONO/uL CSF RBC RBC /uL CSF Mononuclear WBCs CSF Polynuclear WBCs CSF Glucose (40-70) mg/dL CSF Total Protein (12-60) mg/dL CSF C.neoform/gat PCR (Not Detect) CSF CMV DNA (PCR) (Not Detect) CSF Enterovirus (PCR) (Not Detect) CSF E. coli (PCR) (Not Detect) CSF H. influenzae (PCR) (Not Detect) CSF HSV I (PCR) (Not Detect) CSF HSV II (PCR) (Not Detect) CSF HHV 6 (PCR) (Not Detect) CSF L.monocytogenes PCR (Not Detect) CSF N. meningitidis PCR (Not Detect) CSF Parechovirus (PCR) (Not Detect) CSF S. agalactiae (PCR) (Not Detect) CSF S. pneumoniae (PCR) (Not Detect) CSF VZV (PCR) (Not Detecte) U Opiates 300ng/mL cut (Negative) Ur Oxycodone Screen (Negative) Urine Methadone Screen (Negative) Ur Barbiturates Screen (Negative) U Tricyclic Antidepress (Negative) Ur Phencyclidine Scrn (Negative) Ur Amphetamines Screen (Negative) U Methamphetamines Scrn (Negative) Ur MDMA Scrn (Ecstasy) (Negative) U Benzodiazepines Scrn (Negative) Urine Cocaine Screen (Negative) U Marijuana (THC) Screen (Negative) Ethyl Alcohol ( - 10) mg/dL A. baumannii (PCR) Not detected (Not Detect) Xin albicans (PCR) Not detected (Not Detect) C. glabrata (PCR) Not detected (Not Detect) C. krusei (PCR) Not detected (Not Detect) C. parapsilosis (PCR) Not detected (Not Detect) C. tropicalis (PCR) Not detected (Not Detect) SARS-CoV-2 (PCR) (Negative) Enterobacteriac sp PCR Not detected (Not Detect) E. cloacae complex PCR Not detected (Not Detect) Enterococcus sp PCR Not detected (Not Detect) E. coli (PCR) Not detected (Not Detect) H. influenzae (PCR) Not detected (Not Detect) Klebsiella oxytoca PCR Not detected (Not Detect) Klebsiella pneumoniae Not detected (Not Detect) List. monocytogenes PCR Not detected (Not Detect) N. meningitidis (PCR) Not detected (Not Detect) Proteus species (PCR) Not detected (Not Detect) Serratia marcescens PCR Not detected (Not Detect) Staphylococcus sp PCR Detected H (Not Detect) Staph aureus (PCR) Not detected (Not Detect) mecA-Methicil Res Gene Detected H (Not Detect) Streptococcus sp PCR Not detected (Not Detect) Group A Strep (PCR) Not detected (Not Detect) Strep agalactiae (PCR) Not detected (Not Detect) Strep pneumoniae (PCR) Not detected (Not Detect) P. aeruginosa (PCR) Not detected (Not Detect) Jules/B-Vanco Res Genes Not Reportable KPC-Carbap Res Gene PCR Not detected (Not Detect) 06/09/22 06/09/22 06/09/22 Range/Units 17:20 18:00 18:00 WBC (4.5-11.0) X10^3/uL RBC (4.5-5.9) X10^6/uL Hgb (13.5-17.5) g/dL Hct (41-53) % MCV (80-100) fL MCH (26-34) PG MCHC (30-36) % RDW (11.6-14.8) % Plt Count (150-400) X10^3/uL Neut % (Auto) (50-75) % Lymph % (Auto) (25-40) % Johnston % (Auto) (3-14) % Eos % (Auto) (2-4) % Baso % (Auto) (0-2) % Neut # (Auto) (0325-4694) /uL Lymph # (Auto) (2595-0699) /uL Johnston # (Auto) (0-900) /uL Eos # (Auto) (0-450) /uL Baso # (Auto) (0-100) /uL PT (10.1-12.7) SECONDS INR (0.9-1.3) APTT (26-36) SECONDS ABG pH (7.35-7.45) ABG pCO2 (35-45) mmHg ABG pO2 (80-100) mmHg ABG HCO3 (22-26) mmol/L ABG Total CO2 (21-31) mmol/L ABG O2 Saturation (95-100) % ABG Base Excess (-2-2) mmol/L FiO2 Sodium (137-145) mmol/L Potassium (3.4-5.1) mmol/L Chloride (98-107) mmol/L Carbon Dioxide (22-32) mmol/L BUN (9-20) mg/dL Creatinine (0.66-1.25) mg/dL Estimated GFR (>60) mL/min BUN/Creatinine Ratio (6-22) Glucose (80-110) mg/dL Lactate 1.5 (0.7-2.1) mmol/L Calcium (8.4-10.2) mg/dL Total Bilirubin (0.2-1.3) mg/dL AST (17-59) IU/L ALT (<50) IU/L Alkaline Phosphatase (38-126) U/L Ammonia (9-30) umol/L Total Creatine Kinase (55-170) U/L CK-MB (CK-2) (<2.37) ng/mL CK-MB (CK-2) Rel Index (1.5-5.0) % Troponin I (0.01-0.034) ng/mL NT-Pro-B Natriuret Pep (<125) pg/mL Total Protein (6.3-8.2) g/dL Albumin (3.5-5.0) g/dL Globulin (1.7-4.1) g/dL Albumin/Globulin Ratio (1.0-2.8) Procalcitonin (<0.5) ng/mL Urine Color Urine Appearance Urine pH (4.5-8.0) Ur Specific Babb[place] (1.000-1.035) Urine Protein (Negative) Urine Glucose (UA) (Negative) g/dL Urine Ketones (NEGATIVE) Urine Occult Blood (Negative) Urine Nitrate (Negative) Urine Bilirubin (NEGATIVE) Ur Bilirubin Confirm (Negative) Urine Urobilinogen (0.2) E.U./dL Ur Leukocyte Esterase (NEGATIVE) Urine RBC (0-5/HPF) Urine WBC (0-5/HPF) Ur Squamous Epith Cells (0-5/HPF) Ur Transition Epith Cell (0-5/HPF) Urine Bacteria (None) Hyaline Casts (None) Granular Casts (None) Urine Mucus (Negative) Ur Culture Indicated? CSF Tube Number CSF Volume CSF Appearance (Clear) CSF Color (Colorless) CSF WBC (0-5) MONO/uL CSF RBC RBC /uL CSF Mononuclear WBCs CSF Polynuclear WBCs CSF Glucose 72 H (40-70) mg/dL CSF Total Protein 102 H (12-60) mg/dL CSF C.neoform/gat PCR Not detected (Not Detect) CSF CMV DNA (PCR) Not detected (Not Detect) CSF Enterovirus (PCR) Not detected (Not Detect) CSF E. coli (PCR) Not detected (Not Detect) CSF H. influenzae (PCR) Not detected (Not Detect) CSF HSV I (PCR) Not detected (Not Detect) CSF HSV II (PCR) Not detected (Not Detect) CSF HHV 6 (PCR) Not detected (Not Detect) CSF L.monocytogenes PCR Not detected (Not Detect) CSF N. meningitidis PCR Not detected (Not Detect) CSF Parechovirus (PCR) Not detected (Not Detect) CSF S. agalactiae (PCR) Not detected (Not Detect) CSF S. pneumoniae (PCR) Not detected (Not Detect) CSF VZV (PCR) Not detected (Not Detecte) U Opiates 300ng/mL cut (Negative) Ur Oxycodone Screen (Negative) Urine Methadone Screen (Negative) Ur Barbiturates Screen (Negative) U Tricyclic Antidepress (Negative) Ur Phencyclidine Scrn (Negative) Ur Amphetamines Screen (Negative) U Methamphetamines Scrn (Negative) Ur MDMA Scrn (Ecstasy) (Negative) U Benzodiazepines Scrn (Negative) Urine Cocaine Screen (Negative) U Marijuana (THC) Screen (Negative) Ethyl Alcohol ( - 10) mg/dL A. baumannii (PCR) (Not Detect) Xin albicans (PCR) (Not Detect) C. glabrata (PCR) (Not Detect) C. krusei (PCR) (Not Detect) C. parapsilosis (PCR) (Not Detect) C. tropicalis (PCR) (Not Detect) SARS-CoV-2 (PCR) (Negative) Enterobacteriac sp PCR (Not Detect) E. cloacae complex PCR (Not Detect) Enterococcus sp PCR (Not Detect) E. coli (PCR) (Not Detect) H. influenzae (PCR) (Not Detect) Klebsiella oxytoca PCR (Not Detect) Klebsiella pneumoniae (Not Detect) List. monocytogenes PCR (Not Detect) N. meningitidis (PCR) (Not Detect) Proteus species (PCR) (Not Detect) Serratia marcescens PCR (Not Detect) Staphylococcus sp PCR (Not Detect) Staph aureus (PCR) (Not Detect) mecA-Methicil Res Gene (Not Detect) Streptococcus sp PCR (Not Detect) Group A Strep (PCR) (Not Detect) Strep agalactiae (PCR) (Not Detect) Strep pneumoniae (PCR) (Not Detect) P. aeruginosa (PCR) (Not Detect) Jules/B-Vanco Res Genes KPC-Carbap Res Gene PCR (Not Detect) 06/09/22 06/09/22 Range/Units 18:00 18:00 WBC (4.5-11.0) X10^3/uL RBC (4.5-5.9) X10^6/uL Hgb (13.5-17.5) g/dL Hct (41-53) % MCV (80-100) fL MCH (26-34) PG MCHC (30-36) % RDW (11.6-14.8) % Plt Count (150-400) X10^3/uL Neut % (Auto) (50-75) % Lymph % (Auto) (25-40) % Johnston % (Auto) (3-14) % Eos % (Auto) (2-4) % Baso % (Auto) (0-2) % Neut # (Auto) (2864-6291) /uL Lymph # (Auto) (4829-7815) /uL Johnston # (Auto) (0-900) /uL Eos # (Auto) (0-450) /uL Baso # (Auto) (0-100) /uL PT (10.1-12.7) SECONDS INR (0.9-1.3) APTT (26-36) SECONDS ABG pH (7.35-7.45) ABG pCO2 (35-45) mmHg ABG pO2 (80-100) mmHg ABG HCO3 (22-26) mmol/L ABG Total CO2 (21-31) mmol/L ABG O2 Saturation (95-100) % ABG Base Excess (-2-2) mmol/L FiO2 Sodium (137-145) mmol/L Potassium (3.4-5.1) mmol/L Chloride (98-107) mmol/L Carbon Dioxide (22-32) mmol/L BUN (9-20) mg/dL Creatinine (0.66-1.25) mg/dL Estimated GFR (>60) mL/min BUN/Creatinine Ratio (6-22) Glucose (80-110) mg/dL Lactate (0.7-2.1) mmol/L Calcium (8.4-10.2) mg/dL Total Bilirubin (0.2-1.3) mg/dL AST (17-59) IU/L ALT (<50) IU/L Alkaline Phosphatase (38-126) U/L Ammonia (9-30) umol/L Total Creatine Kinase (55-170) U/L CK-MB (CK-2) (<2.37) ng/mL CK-MB (CK-2) Rel Index (1.5-5.0) % Troponin I (0.01-0.034) ng/mL NT-Pro-B Natriuret Pep (<125) pg/mL Total Protein (6.3-8.2) g/dL Albumin (3.5-5.0) g/dL Globulin (1.7-4.1) g/dL Albumin/Globulin Ratio (1.0-2.8) Procalcitonin (<0.5) ng/mL Urine Color Urine Appearance Urine pH (4.5-8.0) Ur Specific Babbitt (1.000-1.035) Urine Protein (Negative) Urine Glucose (UA) (Negative) g/dL Urine Ketones (NEGATIVE) Urine Occult Blood (Negative) Urine Nitrate (Negative) Urine Bilirubin (NEGATIVE) Ur Bilirubin Confirm (Negative) Urine Urobilinogen (0.2) E.U./dL Ur Leukocyte Esterase (NEGATIVE) Urine RBC (0-5/HPF) Urine WBC (0-5/HPF) Ur Squamous Epith Cells (0-5/HPF) Ur Transition Epith Cell (0-5/HPF) Urine Bacteria (None) Hyaline Casts (None) Granular Casts (None) Urine Mucus (Negative) Ur Culture Indicated? CSF Tube Number 1 4 CSF Volume 1.0 ml 1.0 ml CSF Appearance Clear Clear (Clear) CSF Color Colorless Colorless (Colorless) CSF WBC 0 0 (0-5) MONO/uL CSF RBC 0 0 RBC /uL CSF Mononuclear WBCs Not Reportable Not Reportable CSF Polynuclear WBCs Not Reportable Not Reportable CSF Glucose (40-70) mg/dL CSF Total Protein (12-60) mg/dL CSF C.neoform/gat PCR (Not Detect) CSF CMV DNA (PCR) (Not Detect) CSF Enterovirus (PCR) (Not Detect) CSF E. coli (PCR) (Not Detect) CSF H. influenzae (PCR) (Not Detect) CSF HSV I (PCR) (Not Detect) CSF HSV II (PCR) (Not Detect) CSF HHV 6 (PCR) (Not Detect) CSF L.monocytogenes PCR (Not Detect) CSF N. meningitidis PCR (Not Detect) CSF Parechovirus (PCR) (Not Detect) CSF S. agalactiae (PCR) (Not Detect) CSF S. pneumoniae (PCR) (Not Detect) CSF VZV (PCR) (Not Detecte) U Opiates 300ng/mL cut (Negative) Ur Oxycodone Screen (Negative) Urine Methadone Screen (Negative) Ur Barbiturates Screen (Negative) U Tricyclic Antidepress (Negative) Ur Phencyclidine Scrn (Negative) Ur Amphetamines Screen (Negative) U Methamphetamines Scrn (Negative) Ur MDMA Scrn (Ecstasy) (Negative) U Benzodiazepines Scrn (Negative) Urine Cocaine Screen (Negative) U Marijuana (THC) Screen (Negative) Ethyl Alcohol ( - 10) mg/dL A. baumannii (PCR) (Not Detect) Xin albicans (PCR) (Not Detect) C. glabrata (PCR) (Not Detect) C. krusei (PCR) (Not Detect) C. parapsilosis (PCR) (Not Detect) C. tropicalis (PCR) (Not Detect) SARS-CoV-2 (PCR) (Negative) Enterobacteriac sp PCR (Not Detect) E. cloacae complex PCR (Not Detect) Enterococcus sp PCR (Not Detect) E. coli (PCR) (Not Detect) H. influenzae (PCR) (Not Detect) Klebsiella oxytoca PCR (Not Detect) Klebsiella pneumoniae (Not Detect) List. monocytogenes PCR (Not Detect) N. meningitidis (PCR) (Not Detect) Proteus species (PCR) (Not Detect) Serratia marcescens PCR (Not Detect) Staphylococcus sp PCR (Not Detect) Staph aureus (PCR) (Not Detect) mecA-Methicil Res Gene (Not Detect) Streptococcus sp PCR (Not Detect) Group A Strep (PCR) (Not Detect) Strep agalactiae (PCR) (Not Detect) Strep pneumoniae (PCR) (Not Detect) P. aeruginosa (PCR) (Not Detect) Jules/B-Vanco Res Genes KPC-Carbap Res Gene PCR (Not Detect) Point of Care Testing Glucose POC 105 MDM Narrative Medical decision making narrative: This is a 71-year-old male with no known medical issues reported but likely does not see a physician regularly. Patient was found down unclear how long but after further discussion with DPOA at bedside patient had last communication Tuesday. And template communication today which was unsuccessful so they went to the home and found patient on the floor. They note that patient's clothes had been taken off and were soiled with urine in the living and that patient was lying on the bed but look like they had knocked their telephone and bedside table over. Patient developed a fever here, has been slightly hypertensive but not tachycardic. Initial head CT showed no acute change, CT angio shows clot in the right IJ, subclavian SVC, CT PE does not show changes. Workup so far includes elevated hemoglobin, no significant change to coags, elevation in creatinine unsure if this is acute versus chronic without significant electrolyte or LFT changes other than elevated bilirubin. Patient's lactate was 2.8 and trended to normal. CKs in the 500 range. Ammonia is less than 9, troponin is negative with a negative procalcitonin. Urine shows protein, ketones blood and bilirubin but no signs of infection. Rapid drug screen and alcohol is negative. COVID is negative. Patient was planned to be started on heparin but discussed with tell appeals referee and tele stroke about timing of lumbar puncture and heparin. Patient was tapped with plan to start heparin several hours after to prevent bleeding. Discussed with the hospitalist as well. Patient may need transfer for MRI brain/EEG particularly if CSF is negative. At this time patient is full code but discussion with DPOA they state if the patient had minimal likelihood of improvement as he progresses through his illness he would likely not wish for persistent treatment. Patient signed out to Dr. Hardin while awaiting CSF results for final disposition. [1900] (Wilfred) Patient received in sign out from [Afua]. I have reviewed the clinical course and performed an independent physical exam. CSF findings were unremarkable and per earlier discussions there is not support from our appeals referee or hospitalist given the likely need for EEG, MRI, among others. Calls placed to [facility], [facility] among others with no bed availability. Initial call to [facility] sounded unlikely, however there able to find a available bed and Dr. Ordaz and I discussed the history and physical along with lab and imaging findings. He is happy to accept this patient in transport. We discussed initiating heparin therapy to which he agreed was appropriate at this time. Critical Care Time <Margaret Caal, DO - Last Filed: 06/12/22 08:01> Critical Care Time Critical Care Time: Yes Attestation: The high probability of a clinically significant, sudden or life threatening deterioration of the [neurologic, cardiac] system(s) required my full and direct attention, intervention and personal management. The aggregate critical care time was [85] minutes. This time is in addition to time spent performing reported procedures but includes the following: [x] Data Review and interpretation [x] Patient assessment and monitoring of vital signs [x] Documentation [x] Medication orders and management <Earl Hardin, - Last Filed: 06/09/22 23:57> Critical Care Time Total Critical Care Time: 85 Discharge Plan Departure Patient Disposition: [facility] Clinical Impression: Acute alteration in mental status, Internal jugular (IJ) vein thromboembolism, acute, Acute superior vena cava thrombosis Stand Alone Forms: Naloxone Standing Order WILIAN
[2022-06-09] MEDS: SODIUM CHLORIDE 0.9% 1,000 ML 150 ML IV (13:46)
[2022-06-09] MEDS: MIDAZOLAM 5 MG/ML VIAL 4 MG IV (13:46)
--- NOTE | 2022-06-09 14:14 | RT ---
Called to [facility], Recieved pt intubated and placed on Vent without incident. No distress noted and vent plugged into red outlet. Pt suctioned for large thick pale yellow secretions and et tube secured. Bag mask unit at [facility], abg pending post CT.
[2022-06-09] MEDS: fentaNYL 100 MCG/2 ML INJ 50 MCG IV (14:17)
[2022-06-09] MEDS: fentaNYL 1,000 MCG in DEXTROSE 5% IN WATER 230 ML 11.375 MCG IV (14:39)
[2022-06-09 14:52] LABS: Appearance Urine UA CLEAR; Bilirubin Urine UA 1+ (NEGATIVE); Color Urine UA YELLOW; Glucose Urine UA NEGATIVE (Negative); Ketones Urine UA 1+ (NEGATIVE); Leukocyte Esterase Urine UA NEGATIVE (NEGATIVE); Nitrite Urine UA NEGATIVE (Negative); Occult Blood Urine UA 1+ (Negative); Protein Urine UA 1+ (Negative); Specific Gravity Urine UA 1.025 (1.000-1.035)
[2022-06-09 14:57] LABS: Fractionated Inspired Oxygen 100; HCO3 ABG 23 mmol/L (22-26); Oxygen Saturation ABG 100 % (95-100); PCO2 ABG 32.7 mmHg (35-45); PO2 ABG 220 mmHg (80-100); TCO2 ABG 24 mmol/L (21-31); pH ABG 7.45 (7.35-7.45)
[2022-06-09 15:07] LABS: Add Manual Diff / Slide Review NO; Basophils Absolute Auto 0 /uL (0-100); Basophils Percent Auto 0.3 % (0-2); Eosinophils Absolute Auto 0 /uL (0-450); Eosinophils Percent Auto 0.1 % (2-4); Hematocrit 55.5 % (41-53); Lymphocytes Absolute Auto 900 /uL (1100-4500); Lymphocytes Percent Auto 13.1 % (25-40); Mean Corpuscular HGB Conc 34.2 % (30-36); Mean Corpuscular Hemoglobin 33.7 PG (26-34); Mean Corpuscular Volume 98.4 fL (80-100); Monocytes Absolute Auto 400 /uL (0-900); Monocytes Percent Auto 6.7 % (3-14); Neutrophils Absolute Auto 5200 /uL (1500-7000); Neutrophils Percent Auto 79.8 % (50-75); Platelet Count 229 X10^3/uL (150-400); Red Blood Cell Count 5.64 X10^6/uL (4.5-5.9); Red Cell Distribution Width 13.4 % (11.6-14.8); White Blood Cell Count 6.5 X10^3/uL (4.5-11.0)
[2022-06-09 15:12] LABS: INR 1.2 (0.9-1.3); Prothrombin Time 13.4 SECONDS (10.1-12.7)
[2022-06-09 15:15] LABS: PTT Partial Thromboplastin Tim 31 SECONDS (26-36)
[2022-06-09 15:23] LABS: Ammonia (NH3) < 9 umol/L (9-30); Lactate (Lactic Acid) 2.8 mmol/L (0.7-2.1)
[2022-06-09 15:25] LABS: Alanine Aminotransferase 20 IU/L (<50); Albumin 4.6 g/dL (3.5-5.0); Alkaline Phosphatase 59 U/L (38-126); Aspartate Aminotransferase 38 IU/L (17-59); BUN Creatinine Ratio 19.7 (6-22); Bilirubin Total 2.4 mg/dL (0.2-1.3); Blood Urea Nitrogen 28 mg/dL (9-20); Calcium 8.8 mg/dL (8.4-10.2); Carbon Dioxide 24 mmol/L (22-32); Chloride 98 mmol/L (98-107); Creatine Kinase 512 U/L (55-170); Estimated Glomerular Filt Rate 53 mL/min (>60); Ethanol (ETOH) < 10 mg/dL; Globulin 4.6 g/dL (1.7-4.1); Glucose 123 mg/dL (80-110); HEMOLYSIS 18 (0-50); Potassium 4.5 mmol/L (3.4-5.1); Sodium 135 mmol/L (137-145); Total Protein 9.2 g/dL (6.3-8.2)
--- NOTE | 2022-06-09 15:28 | DI.CT.S_ITS ---
PROCEDURE: CT ANGIO CHEST PE PROTOCOL INDICATIONS: pe, clot extending toward SVC on CTA head/neck TECHNIQUE: After the administration of intravenous contrast, 2 mm thick sections acquired from the pulmonary apices to the posterior costophrenic angles. 3-dimensional maximum intensity projection (MIP) coronal and sagittal reformats were then acquired through the thorax. For radiation dose reduction, the following was used: automated exposure control, adjustment of mA and/or kV according to patient size. COMPARISON: [facility], CR, XR CHEST 1V, 06/09/2022, 13:37. FINDINGS: Image quality: Excellent. Pulmonary arteries: Pulmonary arteries are normal in size, and demonstrate no intraluminal filling defects to suggest central pulmonary embolism. Lungs and pleura: Consolidative opacities are present within the left base and to a much lesser degree in the right base. Mediastinum: Heart size is normal, without pericardial effusion. No mediastinal or hilar adenopathy. Thoracic aorta is normal in caliber and enhancement. Esophagus is normal in caliber, without hiatal hernia. Endotracheal tube is present in appropriate position. Bones and chest wall: No suspicious bony lesions. Ribs and thoracic spine appear intact throughout. Thyroid gland is unremarkable. No axillary or supraclavicular adenopathy. Abdomen: Visualized upper abdominal solid organs appear normal in the early arterial phase of enhancement. IMPRESSION: No pulmonary embolism. Consolidative changes within the bases more prominent on the left. This could represent prominent dependent change/atelectasis. However, developing pneumonia and/or atelectasis should be considered particularly on the left. Dictated by: Radha Sharma M.D. on 06/09/2022 at 16:25 Approved by: Radha Sharma M.D. on 06/09/2022 at 16:27
[2022-06-09 15:35] LABS: Troponin I < 0.012 ng/mL (0.01-0.034)
[2022-06-09 15:35] LABS: Ictotest Urine Negative (Negative)
[2022-06-09 15:36] LABS: NT-proBNP (BNP-Adult 18+) 516 pg/mL (<125)
[2022-06-09 15:36] LABS: Bacteria Urine Occasional (0-1); Culture Indicated Urine Cult Not Indicated; Granular Casts Urine 10-30/LPF; Hyaline Casts Urine 10-30/LPF; Mucus Urine 2+ (Negative); RBC Urine 1-5/HPF (0-5/HPF); Squamous Epithelial Cell Urine 0-1 /HPF (0-5/HPF); Transitional Epi Cells Urine 0-1/HPF (0-5/HPF); WBC Urine 1-5/HPF (0-5/HPF)
[2022-06-09 15:37] LABS: COVID19 -Nasal RAPID Negative (Negative)
[2022-06-09 15:40] LABS: CKMB % Relative Index 0.4 % (1.5-5.0); Creatine Kinase MB 1.94 ng/mL (<2.37)
[2022-06-09 15:41] LABS: Procalcitonin 0.16 ng/mL (<0.5)
[2022-06-09 16:06] LABS: UR Morphine/Opiate cutoff 300 Negative (Negative); Ur Creatinine Normal (Normal); Ur Specific Gravity Normal (Normal); Urine Amphetamines Negative (Negative); Urine Barbiturates Negative (Negative); Urine Benzodiazepines Negative (Negative); Urine Cocaine Negative (Negative); Urine MDMA Negative (Negative); Urine Methadone Negative (Negative); Urine Methamphetamines Negative (Negative); Urine Oxycodone Negative (Negative); Urine Phencyclidine Negative (Negative); Urine Tetrahydrocannabinol Negative (Negative); Urine Tricyclic Antidepressant Negative (Negative); Urine pH Normal (Normal)
[2022-06-09] MEDS: ACETAMINOPHEN 650 MG SUPP PR (16:48)
[2022-06-09] MEDS: cefTRIAXone 2,000 MG in SODIUM CHLORIDE 0.9% 100 ML 200 MG IV (16:52)
[2022-06-09] MEDS: DEXAMETHASONE 10 MG/ML VIAL IV (16:52)
[2022-06-09 17:03] LABS: Reflexed Lactate in 2 Hours Y
[2022-06-09] MEDS: AMPICILLIN/SULBACTAM 3 GM 3 GM in SODIUM CHLORIDE 0.9% 100 ML IV (17:35)
[2022-06-09 17:40] LABS: Lactate 2HR (Lactic Acid Rflx) 1.5 mmol/L (0.7-2.1)
[2022-06-09 18:29] LABS: Glucose CSF 72 mg/dL (40-70); Total Protein CSF 102 mg/dL (12-60)
[2022-06-09] MEDS: WATER IV (18:56)
[2022-06-09] MEDS: DEXTROSE 5% IV (18:56)
[2022-06-09] MEDS: ACYCLOVIR IV (18:56)
[2022-06-09 19:06] LABS: CSF Tube Number 1; CSF Tube Volume 1.0 mL
[2022-06-09 19:07] LABS: Appearance CSF Clear (Clear); CSF Tube Number 4; CSF Tube Volume 1.0 mL; Color CSF Colorless (Colorless); Red Blood Cell CSF 0 RBC /uL; White Blood Cell CSF 0 MONO/uL (0-5)
[2022-06-09 19:59] LABS: Cryptococcus neoformans/gattii Not Detected (Not Detect); Enterovirus Not Detected (Not Detect); Escherichia coli K1 Not Detected (Not Detect); Haemophilus influenzae Not Detected (Not Detect); Herpes simplex virus 1 Not Detected (Not Detect); Herpes simplex virus 2 Not Detected (Not Detect); Human herpesvirus 6 Not Detected (Not Detect); Human parechovirus Not Detected (Not Detect); Listeria monocytogenes Not Detected (Not Detect); Neisseria meningitidis Not Detected (Not Detect); Streptococcus agalactiae Not Detected (Not Detect); Streptococcus pneumoniae Not Detected (Not Detect); Varicella Zoster Virus Not Detected (Not Detecte)
[2022-06-09] MEDS: LIDOCAINE 2% INJ SDV 5 ML (20:02)
[2022-06-09] MEDS: VANCOMYCIN 1,500 MG/300 ML PIGGYBACK 200 MG IV (20:05)
[2022-06-09 20:43] LABS: HOLD TUBE CSF HELD
[2022-06-09] MEDS: SODIUM CHLORIDE 0.9% 1,950 ML 650 ML IV (21:10)
--- NOTE | 2022-06-09 22:37 | PC.NURSE ---
Current vent settings 500 TV 50% o2 12 rate PEEP 5
[2022-06-09] MEDS: HEPARIN DRIP 25,000 UNIT/500 ML IV.SOLN 24 UNIT IV (23:04)
[2022-06-10] VITALS: BP 134/64; PULSE 62; RESP 12; TEMP 36.6; O2SAT 97
[2022-06-10 00:09] VITALS: BP 134/64; PULSE 62; RESP 0; RESP 12; O2SAT 96
[2022-06-10 00:14] VITALS: PULSE 64; RESP 14; TEMP 36.5; O2SAT 96
[2022-06-10 00:15] VITALS: BP 137/62
--- NOTE | 2022-06-10 01:18 | RT ---
Patient handed over to transport team with no change in vent settings at 0115.
[2022-06-10 09:47] LABS: Enterococcus species Not Detected (Not Detect); Listeria monocytogenes Not Detected (Not Detect); Staphylococcus species Detected (Not Detect)
[2022-06-10 09:48] LABS: Acinetobacter baumannii Not Detected (Not Detect); Candida albicans Not Detected (Not Detect); Candida glabrata Not Detected (Not Detect); Candida krusei Not Detected (Not Detect); Candida parapsilosis Not Detected (Not Detect); Candida tropicalis Not Detected (Not Detect); E. coli Not Detected (Not Detect); Enterobacter cloacae complex Not Detected (Not Detect); Enterobacteriaceae species Not Detected (Not Detect); Haemophilus influenzae Not Detected (Not Detect); KPC (carbapenem-resist gene) Not Detected (Not Detect); Methicillin-resistant gene Detected (Not Detect); Neisseria meningitidis Not Detected (Not Detect); Proteus species Not Detected (Not Detect); Pseudomonas aeruginosa Not Detected (Not Detect); Serratia marcescens Not Detected (Not Detect); Streptococcus agalactiae (Gr B Not Detected (Not Detect); Streptococcus pneumonia Not Detected (Not Detect); Streptococcus pyogenes (Gr A) Not Detected (Not Detect); Streptococcus species Not Detected (Not Detect)
--- NOTE | 2022-06-16 19:16 | PC.NURSE ---
Late entry: Per Primary RN, Heaprin gtt infusing at documented rate upon transfer of care to Critical Care Transport team on 06/10 at 0100.
== END 2022-06-10 01:00 | disposition short-term general hospital (02) ==
PROVIDERS: Emergency Medicine; Emergency Provider Emergency Medicine
DX: I82.C11 Acute embolism and thrombosis of right internal jugular vein (principal); I82.210 Acute embolism and thrombosis of superior vena cava; R41.82 Altered mental status, unspecified; I10 Essential (primary) hypertension; R79.89 Other specified abnormal findings of blood chemistry; Z20.822 Contact with and (suspected) exposure to COVID-19
CPT/HCPCS: 36415; 36600; 62270; 70450; 70496; 70498; 71045; 71275; 80053; 80305; 80320; 81001; 82140; 82550; 82553; 82805; 82945; 82962; 83605; 83880; 84145; 84157; 84484; 85025; 85610; 85730; 87040; 87070; 87077; 87147; 87150; 87186; 87205; 87635; 87798; 89051; 93005; 93010; 94002; 94799; 96365; 96366; 96367; 96368; 96375; 99285; 99291; 99292; C9803; J0295; J0696; J1100; J1644; J2250; J3010; Q9967